=== PATIENT | male | born 1945 | race Caucasian/White ===

== ENCOUNTER → 2021-06-03 11:56 | Outpatient (CLI) | payer MEDICARE, BC, SELFPAY ==
[2021-06-03 13:31] LABS: Add Manual Diff / Slide Review NO; Basophils Absolute Auto 0 /uL (0-100); Basophils Percent Auto 0.5 % (0-2); Eosinophils Absolute Auto 100 /uL (0-450); Eosinophils Percent Auto 1.7 % (2-4); Hematocrit 42.1 % (41-53); Hemoglobin 14.3 g/dL (13.5-17.5); Lymphocytes Absolute Auto 1200 /uL (1100-4500); Mean Corpuscular HGB Conc 34.1 % (30-36); Mean Corpuscular Hemoglobin 31.5 PG (26-34); Mean Corpuscular Volume 92.4 fL (80-100); Monocytes Absolute Auto 600 /uL (0-900); Monocytes Percent Auto 11.1 % (3-14); Neutrophils Absolute Auto 3300 /uL (1500-7000); Neutrophils Percent Auto 63.7 % (50-75); Platelet Count 207 X10^3/uL (150-400); Red Blood Cell Count 4.55 X10^6/uL (4.5-5.9); Red Cell Distribution Width 13.5 % (11.6-14.8); White Blood Cell Count 5.2 X10^3/uL (4.5-11.0)
[2021-06-03 13:45] LABS: BUN Creatinine Ratio 35.2 (6-22); Blood Urea Nitrogen 25 mg/dL (9-20); Calcium 9.3 mg/dL (8.4-10.2); Carbon Dioxide 26 mmol/L (22-32); Chloride 106 mmol/L (98-107); Estimated Glomerular Filt Rate > 60.0 mL/min (>60); Glucose 92 mg/dL (80-110); HEMOLYSIS < 15 (0-50); Potassium 4.4 mmol/L (3.4-5.1); Sodium 138 mmol/L (137-145)
== END ==
PROVIDERS: Family Provider Internal Medicine; PCP Internal Medicine; Referring Provider Orthopaedic Surgery Orthopaedic Surgery of the Spine; Visit Provider Orthopaedic Surgery Orthopaedic Surgery of the Spine
DX: Z01.812 Encounter for preprocedural laboratory examination (principal)
CPT/HCPCS: 36415; 80048; 85025

== ENCOUNTER → 2021-06-04 11:30 | Outpatient (CLI) | payer MEDICARE, BC, SELFPAY ==
[2021-06-04 14:30] LABS: COVID19 -Nasal RAPID Negative (Negative)
== END ==
PROVIDERS: Family Provider Internal Medicine; PCP Internal Medicine; Visit Provider Nurse Practitioner
DX: Z20.822 Contact with and (suspected) exposure to COVID-19 (principal); Z01.812 Encounter for preprocedural laboratory examination
CPT/HCPCS: 87635

== ENCOUNTER 2021-06-06 09:12 | Inpatient (IN) | payer MEDICARE, BC, SELFPAY ==
[2021-05-29 09:56] VITALS: BMI 26.3
[2021-06-06] VITALS (17 sets, daily range): BP systolic 98–150; BP diastolic 45–86; PULSE 61–87; RESP 8–17; TEMP 36.2–36.7; O2SAT 91–98; BMI 26.6
[2021-06-06 11:00] LABS: Appearance Urine UA CLEAR; Bilirubin Urine UA NEGATIVE (NEGATIVE); Color Urine UA YELLOW; Glucose Urine UA NEGATIVE (Negative); Ketones Urine UA NEGATIVE (NEGATIVE); Leukocyte Esterase Urine UA NEGATIVE (NEGATIVE); Nitrite Urine UA NEGATIVE (Negative); Occult Blood Urine UA NEGATIVE (Negative); Protein Urine UA NEGATIVE (Negative); Urobilinogen Urine UA 0.2 E.U./dL (0.2)
[2021-06-06 11:13] LABS: Bacteria Urine Few (2-10); Culture Indicated Urine Cult Not Indicated; RBC Urine 0-1/HPF (0-5/HPF); WBC Urine 0-1/HPF (0-5/HPF)
[2021-06-06] MEDS: ACETAMINOPHEN 325 MG TABLET 975 MG PO (12:12)
[2021-06-06] MEDS: GABAPENTIN 300 MG CAPSULE PO (12:13)
--- NOTE | 2021-06-06 12:34 | PM.PREOP ---
Pre-operative Note COVID-19 COVID-19 status: Negative Result date/Date tested (Pos, Neg/Pending): 06/04/21 Interval Note History & Physical reviewed/Exam performed by Physician: Yes Changes to H&P: No
[2021-06-06] MEDS: LACTATED RINGERS 1,000 ML 42 ML IV (12:37)
[2021-06-06] MEDS: CEFAZOLIN 1 GM VIAL 2 GM IV ×2 (13:26→22:00)
--- NOTE | 2021-06-06 13:37 | SUR.OPER ---
Prone on spine table, head in foam head support, padded chest and pelvic supports, gel pad at knees, lower legs supported by pillows; nipples, genitalia and toes free of pressure, arms secured on foam padded arm boards at <90 degrees abduction. Tape over blanket at thigh secured to table.
[2021-06-06] MEDS: BUPIVACAINE LIPOSOME 266 MG/20 ML VIAL INJ (13:47)
[2021-06-06] MEDS: BUPIVACAINE 0.25% W/ EPI 30 ML VIAL INJ (13:47)
--- NOTE | 2021-06-06 15:08 | DI.RAD.S_ITS ---
PROCEDURE: XR LUMBAR SPINE 2-3V INDICATIONS: L3-4 TLIF TECHNIQUE: Low resolution fluoroscopic spot films of the anterior lateral lower lumbar obtained COMPARISON: None. FINDINGS: Low resolution intraoperative spot film shows L4-5 posterior jamel and screw instrumentation as well as an interbody cage graft in good position. IMPRESSION: Fluoroscopic guidance Approved by: Ivan Hamilton M.D. on 06/06/2021 at 14:41
--- NOTE | 2021-06-06 15:20 | PM.OP.1 ---
Operative Date/Time/Diagnoses Date of procedure: 06/06/21 Time of procedure: 13:20 Pre-op diagnosis: 1. L3-4 spinal stenosis 2. L3-4 spondylolisthesis 3. L3-4 spondylosis with radiculopathy Post-op diagnosis: same Procedure & Clinicians Procedure: 1. L3-4 Postero-lateral and posterior interbody fusion 2. L3-4 interbody cage placement. 3. L3-4 decompressive laminectomy with bilateral facetecomies 4. L3-4 Posterior non-segmental instrumentation 5. [place] of bone marrow from iliac crest 6. Utilization of microsurgical technique and operating microscope Same procedure as scheduled: Yes Indications: Patient has been having chronic back pain and worsening lumbar radiculopathy. Patient failed multiple conservative management with worsening pain weakness and numbness in her lower extremity. Patient has been having difficulty performing activity of daily living. After discussing risks benefits of treatment options, patient elected proceed with surgery. Surgeon: Dax Hassan Click Yes if Unassisted: No Anesthesia Type: General Operative Notes Closure Type: primary Specimen(s): none sent Prosthetic devices, grafts, tissues, transplants, or devices: Globus revolve screws, Rise cage Estimated Blood Loss (mL): 100 Blood products transfused: none Procedure in detail: Patient was seen in the preoperative area. Risks and benefits of the surgery was discussed with the patient. Informed consent was obtained from the patient and placed in the chart. Surgical site was marked. Patient was taken to the operative room. General anesthesia was administered. Prophylactic antibiotic was given to the patient less than 30 min before the incision was made. Patient was placed into a prone position on the [place] Antonio table. Patient's back was then prepped and draped in the sterile fashion. Time-out was performed at this time. Using AP and lateral C-arm imaging the interval between L3-4, L4-5 was identified and marked on patient's back. A 2 inch incision 2 in from midline was made on the right side first. The fascia was incised in line with skin incision. Globus MARS retractors was placed inside the incision and docked onto the L3 lamina. Using microsurgical technique and operating microscope, a L3 laminectomy and [] facetectomy was performed using a Kerrison rongeur. The disc space at L3-4 was identified. And a total diskectomy was performed at L3-4 level. The endplates were decorticated using a rasp and shaver. The total diskectomy and decortication was performed at L3-4 level in order to to accomplish a L3-4 fusion. The local bone from the laminectomy and facetectomy was saved for local bone grafting. After the total diskectomy and decortication was completed, Globus Trifecta bone graft material was combined with local bone that was harvested earlier. At this time, a separate skin is incision was made over the iliac crest. A Jamshidi needle was inserted into the iliac crest through a separate skin incision. 5 cc of bone marrow aspiration was obtained through the separate skin incision using a Jamshidi needle from the iliac crest. The bone marrow aspiration was combined with local bone and theTrifecta bone grafting material. The bone grafting material was placed into the L3-4 interbody space along with a expandable cage. The cage was expanded to its maximum height using the torque limiting screwdriver. At this time a mirror image incision was made on the left side. The fascia was incised in line with the skin incision. Globus MARS retractor was inserted and docked onto the L3-4 posterolateral gutter. Using the power drill, posterior-lateral decortication was performed at L3-4 level until bleeding cortical bone was identified. The remaining bone grafting material was placed into the L3-4 posterior lateral gutter he order to accomplish posterolateral fusion at the L3-4 level. Using the double C-arm technique, pedicle screws were placed into the L3-4 pedicles bilaterally. This was done by placing the Jamshidi needle into the pedicles, then placing the guidewires over the Jamshidi needle, and finally placing the cannulated screws over the guidewires bilaterally. After the pedicle screws were placed, 2 titanium rods was locked into the heads of the pedicle screws using locking caps and torque limiting screwdriver. After all the hardware was placed, and confirmed with AP and lateral C-arm imaging, the wound was then irrigated with sterile normal saline and packed with Ray-Krista gauze for 3 min to accomplish hemostasis. After the gauze was removed the deep fascia was closed with #1 Vicryl suture. The subcutaneous layer was closed with 2-0 Vicryl. The skin was closed with skin linda. Patient tolerated the procedure well. There were no complications. Complications: none Post-operative Condition: stable Disposition: PACU Plan for aftercare: Admit to inpatient hospital
[2021-06-06] MEDS: HYDROMORPHONE 2 MG INJ IV ×2 (15:40→15:45)
[2021-06-06] MEDS: OXYCODONE IR 5 MG TABLET PO ×4 (15:43→22:01)
[2021-06-06] MEDS: ONDANSETRON 4 MG/2 ML INJ IV (16:22)
--- NOTE | 2021-06-06 17:18 | SUR.PHASEI ---
PACU: CALLED REPORT TO Lio DORAN RN. ALL QUESTIONS ANSWERED TO SATISFACTION. BROUGHT PATIENT UP TO RM 207 IN STABLE CONDITION. MET ESPINOZA AT BEDSIDE FOR FACE TO FACE HANDOFF. SCD ON, BED LOCKED IN LOW POSITION, CALL LIGHT IN REACH.
[2021-06-06] MEDS: HYDROMORPHONE 0.5 MG INJ IV (17:39)
[2021-06-06] MEDS: hydrOXYzine pamoate 25 MG CAPSULE PO (17:39)
[2021-06-06] MEDS: SODIUM CHLORIDE 0.9% 1,000 ML 100 ML IV (17:39)
[2021-06-06] MEDS: DOCUSATE 100 MG CAPSULE PO (22:00)
[2021-06-06] MEDS: SENNOSIDES 8.6 MG TABLET 17.2 MG PO (22:00)
--- NOTE | 2021-06-06 23:28 | PC.NURSE ---
Admit/Evening Shift Note- Patient arrived to room via bed from surgery at 1705. Patient complained of paibn at 7/10. No complaints of N/V. Patient tolerated general diet dinner without issue. Admit questions done, medications reviewed, physical assessment done, and skin check completed. Patient oriented to room, bed and bed controls, lights, phone, menu, bathroom, and call larios/tv remote. Safety meausures in place. Patient agrees to call for assistance. call larios and phone within reach. will continue to monitor.
[2021-06-07 00:40] VITALS: BP 123/68; PULSE 68; RESP 16; TEMP 36.6; O2SAT 97
[2021-06-07] MEDS: ACETAMINOPHEN 325 MG TABLET 650 MG PO (03:30)
[2021-06-07 03:35] VITALS: BP 126/71; PULSE 68; RESP 16; TEMP 36.2; O2SAT 97
[2021-06-07] MEDS: CEFAZOLIN 1 GM VIAL 2 GM IV (05:33)
[2021-06-07 07:50] VITALS: BP 131/72; PULSE 65; RESP 16; TEMP 36.2; O2SAT 97
[2021-06-07 08:12] VITALS: O2SAT 95
[2021-06-07] MEDS: CHOLECALCIFEROL (VITAMIN D3) 400 UNIT TABLET PO (09:07)
[2021-06-07] MEDS: TAMSULOSIN 0.4 MG CAPSULE PO (09:07)
[2021-06-07] MEDS: DOCUSATE 100 MG CAPSULE PO (09:07)
[2021-06-07] MEDS: OXYCODONE IR 5 MG TABLET PO ×2 (09:09→13:31)
--- NOTE | 2021-06-07 09:09 | P.DS_ITS ---
History of Present Illness History of Present Illness Date Patient Seen: 06/07/21 Time Patient Seen: 09:09 Chief complaint: OPB Narrative: The patient is complaining of mild back pain this morning, which is well controlled with current pain management. He denies any fevers, chills, night sweats. He denies any numbness or tingling in his bilateral lower extremities. He has not worked with physical therapy yet. He does have a flight of stairs when he gets home. Overall, he is feeling well, and would like to go home today if physical therapy is successful. Discharge Providers Provider Discharge Date: 06/07/21 Primary care physician: Aimee Bullock MD Consults: 06/06/21 17:10 Consult to Occupational Therapy Evaluate & Treat Comment: Physician Instructions: Evaluate and treat Consult to Physical Therapy Evaluate & Treat Comment: Physician Instructions: Evaluate and Treat Discharge provider: Marlene Guevara PA-C Summary Hospital Course Discharge Diagnosis: 1. L3-4 spinal stenosis 2. L3-4 spondylolisthesis 3. L3-4 spondylosis with radiculopathy Hospital Course: Procedure: 1. L3-4 Postero-lateral and posterior interbody fusion 2. L3-4 interbody cage placement. 3. L3-4 decompressive laminectomy with bilateral facetecomies 4. L3-4 Posterior non-segmental instrumentation 5. [place] of bone marrow from iliac crest 6. Utilization of microsurgical technique and operating microscope Same procedure as scheduled: Yes Indications: Patient has been having chronic back pain and worsening lumbar radiculopathy. Patient failed multiple conservative management with worsening pain weakness and numbness in her lower extremity. Patient has been having difficulty performing activity of daily living. After discussing risks benefits of treatment options, patient elected proceed with surgery. Surgeon: Dax Hassan Click Yes if Unassisted: No Anesthesia Type: General Operative Notes Closure Type: primary Specimen(s): none sent Prosthetic devices, grafts, tissues, transplants, or devices: Globus revolve screws, Rise cage Estimated Blood Loss (mL): 100 Blood products transfused: none Status at Discharge Cognitive/behavioral status at discharge: oriented Functional status at discharge: uses cane/walker Overall status at discharge: patient is progressing back to baseline Exam Vital Signs (past 8 hours): - 06/07/21 03:35 06/07/21 08:12 Temperature 97.1 F L Pulse Rate 68 Respiratory Rate 16 Blood Pressure 126/71 Pulse Oximetry 97 95 Oxygen Delivery Method Nasal Cannula Oxygen Flow Rate 2 Narrative Exam Narrative: Pleasant 76-year-old male, lying comfortably in bed, no acute distress. His incision has mild scant drainage, bloody. Bilateral lower extremities with normal motor functions, sensation is also grossly intact to light touch bilaterally. Both legs are warm and dry. Bilateral calf calves are soft, nontender to palpation. SCDs are in place and functioning. He is currently on 2 L of oxygen. Objective Labs Labs: Laboratory Results - last 24 hr 06/06/21 10:57 Urine Color Yellow Urine Appearance Clear Urine pH 6.0 Ur Specific [place] 1.020 Urine Protein Negative Urine Glucose (UA) Negative Urine Ketones Negative Urine Occult Blood Negative Urine Nitrate Negative Urine Bilirubin Negative Urine Urobilinogen 0.2 Ur Leukocyte Esterase Negative Urine RBC 0-1/hpf Urine WBC 0-1/hpf Urine Bacteria Few (2-10) H Ur Culture Indicated? Cult not indicated PFSH Medical History Arthritis BCC (basal cell carcinoma) Borderline hypertension Enlarged prostate Heart murmur Mitral valve prolapse Rash and nonspecific skin eruption Rosacea SCC (squamous cell carcinoma) Sciatica Thoracic aortic aneurysm Surgical History History of carpal tunnel release Hx of laminectomy (04/2016) Social History household members: spouse Smoking Status: Never smoker alcohol intake: current Discharge Assessment & Plan Assessment and Plan Assessment: Patient is progressing as expected status post lumbar fusion. Plan of Treatment: Weightbearing as tolerated. Limit bending, twisting, lifting. The patient will need to work with physical therapy and be cleared in order to discharge today. He will also need to wean off of his oxygen. The plan is to discharge home today once cleared by PT. Discharge Plan Discharge Plan Patient Disposition: Home Discharge orders & Medications Discharge Orders: Discharge (Order); Ordered 06/07/21 Ordered By: Marlene Guevara Prescriptions: New acetaminophen 325 mg Tablet 500 mg PO Q6HR PRN (Reason: for pain, max 6 tabs/day) Qty: 90 RF: 0 oxycodone 5 mg Tablet 5 mg PO Q3-6H PRN (Reason: pain) Qty: 42 RF: 0 docusate sodium [DOK] 100 mg Capsule 100 mg PO BID PRN (Reason: constipation from narcotic pain meds) Qty: 60 RF: 0 tamsulosin [Flomax] 0.4 mg Capsule 0.4 mg PO DAILY PRN (Reason: postop urination) Qty: 5 RF: 0 acetaminophen [Tylenol Extra Strength] 500 mg tablet 500 mg PO Q4-6H MDD 6 tabs/day PRN (Reason: pain) Qty: 90 RF: 0 oxycodone 5 mg capsule See Rx Instructions .ROUTE .COMPLEX PRN (Reason: pain) Qty: 42 RF: 0 tamsulosin 0.4 mg capsule 0.4 mg PO DAILY Qty: 5 RF: 0 docusate sodium 100 mg tablet 100 mg PO BID PRN (Reason: constipation from narcotic pain meds) Qty: 60 RF: 0 acetaminophen [Tylenol Extra Strength] 500 mg tablet 500 mg PO Q4-6H MDD 6 tabs/day PRN (Reason: pain) Qty: 90 RF: 0 Continued tamsulosin 0.4 mg Capsule 0.4 mg PO DAILY RF: 0 naproxen sodium [Aleve] 220 mg Capsule 220 mg PO DAILY RF: 0 cholecalciferol (vitamin D3) [Vitamin D3] 10 mcg (400 unit) Capsule 10 mcg PO DAILY RF: 0 glucosamine sulfate 750 mg Tablet 750 mg PO DAILY RF: 0 Follow up/Referrals: Aimee Bullock MD [Primary Care Provider] - Dax Hassan MD [Physician] - (2 weeks for postop appt) Diet/Activity/Treatments Diet: Diet as Tolerated and Regular Activity: Weight-bearing as tolerated. Limit bending, lifting, twisting. Cold/Heat Therapy: Use ice as needed for pain. Skin/Wound/Dressing Care Report to your healthcare provider any signs of infection, such as:: chills, fever, night sweats, unusual drainage and unusual redness Dressing: Okay to shower after 2 days. Please change the dressing if wet, saturated, soiled. Visit Report/Discharge Packet Instructions: DI for Transforaminal Lumbar Interbody Fusion Stand Alone Forms: Surgery Discharge Discharge Data Primary Care Provider: Aimee Bullock Attending Provider: Dax Hassan
--- NOTE | 2021-06-07 09:30 | PT.IIE ---
Current Diagnoses Spinal stenosis, lumbar region with neurogenic claudication (06/06/21) Other specified postprocedural states (06/06/21) Surgery Performed Operation Date: 06/06/21 10:45 Actual Procedures p L3-4 TLIF - Dax Hassan MD Medical History (Last Reviewed 06/07/21 @ 09:13 by Marlene Guevara PA-C) Arthritis BCC (basal cell carcinoma) Borderline hypertension Enlarged prostate Heart murmur Mitral valve prolapse Rash and nonspecific skin eruption Rosacea SCC (squamous cell carcinoma) Sciatica Thoracic aortic aneurysm Physical Therapy Inpatient Evaluation/Re-Eval M1 PT/OT-IP Prior Functional Status Start: 06/07/21 10:40 Freq: NEEDED Status: Active Protocol: Document 06/07/21 09:30 AB (Rec: 06/07/21 10:54 AB [email or web address]) Medical Review Prior Functional Status Medical History Reviewed Yes Communication able to make needs known Mobility and Gait pt stated that he is independent with all mobilities and ambulation without AD; h/o falls : ~ 6 falls for the year and last fall was last month Social History Household Members spouse Living Arrangements House Number of Floors (Floors) Two Floors Number of Stairs To Enter/Railing? no steps to enter 13 steps to bedroom level: 1/2 has B rails and 1/2 has R rail +wall Home Environment Standard Height Toilet,Walk in Shower Home Equipment Front Wheel Walker,Four Wheel Walker M2 PT-IP Current Condition Start: 06/07/21 10:40 Freq: NEEDED Status: Active Protocol: Document 06/07/21 09:30 AB (Rec: 06/07/21 10:54 AB [email or web address]) Physical Therapy Current Condition Current Condition Evaluation Date 06/07/21 Treatment Diagnosis s/p L3-4 fusion/lami; difficulty in walking Onset Date 06/06/21 Precautions Lumbar Precautions Log Roll,No Twisting,Limit Bending,Lifting Restriction of 10 lbs,Gait Belt above Incisional Area M3 PT-IP Subjective Start: 06/07/21 10:40 Freq: NEEDED Status: Active Protocol: Document 06/07/21 09:30 AB (Rec: 06/07/21 10:54 AB [email or web address]) Subjective Physical Therapy Visit Type Type Initial Evaluation Visit Start Time 09:30 Visit Stop Time 10:20 Total Visit Minutes 50 Number of SAP PPM CONSULTANT Visits 0 Physical Therapy Visit Comments Patient Comments agreeable to do PT Therapy Pain Assessment Pain When Pain Assessed At Rest Pain Present Pain Present Pain Reported Location low back into left leg Intensity 5 Scale Used Numeric (0 - 10) Pain Management Techniques Apply Cold,Re-positioning, Timing of Activity with Medications M4 PT-IP Mobility and Gait Start: 06/07/21 10:40 Freq: NEEDED Status: Active Protocol: Document 06/07/21 09:30 AB (Rec: 06/07/21 10:54 AB [id number]) PT-Bed Mobility Assessment Rolling Type of Rolling Log Rolling Level of Assist Minimal Assistance Supine to Sit Supine to Sit Minimal Assistance PT-Transfer Assessment Sit to and From Stand Sit to and from Stand Moderate Assistance,Maximum Assistance,1 Person Assistance ,2 Person Assistance,Use of Upper Extremities Equipment Transfer Assistive Device Gait Belt,Front Wheeled Walker Orthotic/Prosthetic Devices or Brace: No Transfers Transfer Destination Chair Transfer Technique Stand Step Pivot Transfer Ability Level of Assist Moderate Assistance,Maximum Assistance,1 Person Assistance ,Use of Upper Extremities Comments Mobility Comments BP: 124/63 educated on back precautions and log roll bed mobility. completed supine to sit log roll min A and max cues. BP: 134/68. no c/o dizziness/nausea. attempted sit to stand from EOB x 2 attempts and unable providing max A x 1. NAC came in to assist and attempted 2 more time and unable. educated pt on techniques for sit to stand . L hand positioned on FWW to assist and R hand pushing from bed and completed max A x 1-2 and max cues. completed step transfer using FWW mod to max A and max cues. cued for L quads activation. pt stated that LLE feels weak. pt agreed to do ambulation. completed sit to stand from chair mod to max A and max cues. ambulated ~ 15 ft using FWW mod to max A and max cues . pt agreed to sit on chair. positioned on chair. call light and table place within reach. Gait Assessment Gait Gait Assistance Required: Moderate Assistance,Maximum Assistance,1 Person Assist Distance (Feet) 15 Able to Maintain Weight Bearing Status Yes During Gait Assistive Devices Assistive Device Gait Belt,Front Wheeled Walker Orthotic/Prosthetic Devices or Brace: No Gait Deviations General Gait Pattern Antalgic,Decreased Stride Length,Decreased Feet Clearance,Step-to Gait Factors Limiting Gait Function Factors Limiting Gait Function Decreased Activity Tolerance, Decreased Strength,Limited Range of Motion,Pain,Poor Balance,Poor Safety Awareness Comments Gait Comments pls refer to mobility section for details PT-Balance Assessment Sitting Balance and Reactions Static Sitting Balance Ability Good Dynamic Sitting Balance Ability Good Standing Balance and Reactions Static Standing Balance Ability Poor Dynamic Standing Balance Ability Poor Device Used FWW M5 PT-IP Objective Assessments Start: 06/07/21 10:40 Freq: NEEDED Status: Active Protocol: Document 06/07/21 09:30 AB (Rec: 06/07/21 10:54 AB [email or web address]) Orientation Orientation/Cognition Level of Alertness Alert Orientation Name,Place,Situation Language Function Ability No Deficits Noted Safety Awareness Decreased Safety Awareness Gross Range of Motion Lower Extremity ROM Assessment Within Functional Limits Strength Lower Extremity Strength Assessment Bilaterally Impaired Comments Strength Comments LLE: 3+/5 RLE: 4-/5 Sensation Assessment Sensation Gross Sensation WNL Muscle Tone Muscle Tone WNL Yes Other Assessments Other Other Assessments increase cervical lateral flexion to the R and upper thoracic levoscoliosis. M6 PT-IP Treatment Start: 06/07/21 10:40 Freq: NEEDED Status: Active Protocol: Document 06/07/21 09:30 AB (Rec: 06/07/21 10:54 AB [id number]) Physical Therapy Treatment Education Education Provided Precautions,Weight Bearing Status,Post-Op Packet,Safety M7 PT-IP Assessment and Plan Start: 06/07/21 10:40 Freq: NEEDED Status: Active Protocol: Document 06/07/21 09:30 AB (Rec: 06/07/21 10:54 AB [email or web address]) PT Summary Assessment and Plan Potential Rehabilitation Potential Fair Status of Condition at Evaluation Evolving Summary Impairments Pain,ROM,Strength,Balance, Coordination,Sensation,Tone, Cognition,Bed Mobility, Transfers,Gait,Activity Tolerance Assessment Summary pt requiring mod to max A x 2 with ambulation using FWW needing assist to stabilize LLE. pt stated that spouse will be coming in this afternoon and caregiver training will be initiated when appropriate. will continue to assess progress for safe d/c plan. Goals Bed Mobility Goal Independent Transfer Goal Independent,Front Wheeled Walker Gait Goal Independent,Front Wheel Walker Gait Distance 150 Other Goals up/down 7 steps R rail SBA; 6 steps B rail SBA Days to Meet Goals 5 Frequency of Treatment Frequency Of Treatment Twice a Day Treatment Plan Physical Therapy Treatment Plan Bed Mobility Training,Transfer Training,Gait Training, Therapeutic Exercise,Balance Retraining,Post Op Education, Discharge Planning,Hot or Cold Pack,Neuromuscular Re-ed, Coordination Retraining,Manual Therapy Other Recommendations and Next Treatment caregiver training, stair Focus training Precautions Lumbar Precautions Log Roll,No Twisting,Limit Bending,Lifting Restriction of 10 lbs,Gait Belt above Incisional Area Recommendations To Nursing Amount of Assist Needed 1 Person Assist Discharge Recommendations PT Discharge Recommendations Home with 10/05 Assist Available,Home Health,SNF Rehab,Home vs SNF Transportation Needs at Discharge Private Vehicle,Wheelchair/ Cabulance
--- NOTE | 2021-06-07 11:20 | OT.IP.EVAL ---
Current Diagnoses Spinal stenosis, lumbar region with neurogenic claudication (06/06/21) Other specified postprocedural states (06/06/21) Surgery Performed Operation Date: 06/06/21 10:45 Actual Procedures p L3-4 TLIF - Dax Hassan MD Past Medical History (Last Reviewed 06/07/21 @ 09:13 by Marlene Guevara PA-C) Arthritis BCC (basal cell carcinoma) Borderline hypertension Enlarged prostate Heart murmur History of carpal tunnel release Hx of laminectomy (04/2016) Mitral valve prolapse Rash and nonspecific skin eruption Rosacea SCC (squamous cell carcinoma) Sciatica Thoracic aortic aneurysm Surgical History (Last Reviewed 06/07/21 @ 09:13 by Marlene Guevara PA-C) History of carpal tunnel release Hx of laminectomy (04/2016) Occupational Therapy Inpatient Evaluation/Re-Eval M1 PT/OT-IP Prior Functional Status Start: 06/07/21 10:40 Freq: NEEDED Status: Active Protocol: Document 06/07/21 14:14 [facility] (Rec: 06/07/21 14:27 [facility] [id number]) Medical Review Prior Functional Status Medical History Reviewed Yes Communication able to make needs known Mobility and Gait pt stated that he is independent with all mobilities and ambulation without AD; h/o falls : ~ 6 falls for the year and last fall was last month Activities of Daily Living and IADL's Pt states has been independent for all his ADL and IADL needs. Social History Household Members spouse Living Arrangements House Number of Floors (Floors) Two Floors Number of Stairs To Enter/Railing? no steps to enter 13 steps to bedroom level: 1/2 has B rails and 1/2 has R rail +wall Per OT eval pt states has 24 step to get into his house. Home Environment Standard Height Toilet,Walk in Shower Home Equipment Front Wheel Walker,Four Wheel Walker,Gyroscopic Instrument Mechanic M2 OT-IP Current Condition Start: 06/07/21 14:14 Freq: Status: Active Protocol: Document 06/07/21 14:14 [facility] (Rec: 06/07/21 14:27 [facility] [id number]) Occupational Therapy Current Condition Current Condition Evaluation Date 06/07/21 Treatment Diagnosis S/p L3-4 fusion/lami, decreased mobility. Diagnosis Onset Date 06/06/21 Post Operative Precautions Lumbar Precautions Log Roll,No Twisting,Limit Bending,Lifting Restriction of 10 lbs,Gait Belt above Incisional Area M3 OT- IP Subjective and Pain Start: 06/07/21 14:14 Freq: Status: Active Protocol: Document 06/07/21 14:14 [facility] (Rec: 06/07/21 14:27 [facility] [id number]) OT- Subjective Occupational Therapy Visit Type Type Initial Evaluation Visit Start Time 10:47 Visit Stop Time 11:20 Total Visit Minutes 33 Occupational Therapy Visit Comments Patient Comments Pt agreed to get up for OT eval. Patient/Caregiver Goals TO go home. OT Pain Assessment Pain When Pain Assessed At Rest Pain Present Pain Present Pain Reported Location low back into left leg Intensity 5 Scale Used Numeric (0 - 10) M4 OT- IP ADL's Start: 06/07/21 14:14 Freq: Status: Active Protocol: Document 06/07/21 14:14 [facility] (Rec: 06/07/21 14:27 [facility] [id number]) OT ADL-Grooming General Evaluation Grooming Ability Standby Assistance OT ADL-Oral Care General Eval Oral Care Ability Standby Assistance Comments Oral Care Comments Educated to spit onto a cup to best follow his back precautions. Pt tends to lean on the counter for support while standing with FWW. OT ADL-Dressing General Eval Lower Body Dressing Ability Maximum Assistance Comments OT Dressing Comments Able to go over flowers salesperson and sock aid , pt states his to assist for his socks as needed. OT ADL-Toileting Comments OT Toileting Comments Pt able to stand with FWW while urinating and CGA for balance. OT ADL-Bathing Comments OT Bathing Comments NOt performed. M5 OT- IP IADL's Start: 06/07/21 14:14 Freq: Status: Active Protocol: Document 06/07/21 14:14 [facility] (Rec: 06/07/21 14:27 [facility] [id number]) OT-Instrumental Activities of Daily Living Home Safety Awareness Home Safety Comments Pt a little groggy and not able to recall his back precautions and would be best for his to assist for his needs at this time. M6 OT- IP Functional Cognition Start: 06/07/21 14:14 Freq: Status: Active Protocol: Document 06/07/21 14:14 [facility] (Rec: 06/07/21 14:27 [facility] [id number]) Cognitive Factors Limiting Selfcare Function Cognitive Ability Level of Alertness Alert Patient Orientation Name,Place,Situation Attention Span Ability Capable of Focused Attention, Capable of Sustained Attention Ability to Follow Commands Able to Follow One Step Commands Safety Awareness Underestimates Need for Assistance Cognitive Comments Cognitive Assessment Comments Pt needing vc for safety to come to stand, vc to push up with at least one hand to come to stand at this time. Pt not able to recall his back precautions at this time and would benefit from continued training. OT- Vision and Hearing OT- Hearing Assessment OT- Hearing Assessment WFL M7 OT- IP Mobility and Balance Start: 06/07/21 14:14 Freq: Status: Active Protocol: Document 06/07/21 14:14 [facility] (Rec: 06/07/21 14:27 [facility] [id number]) OT-Transfer Assessment Sit to and From Stand Sit to and from Stand Minimal Assistance Transfers Transfer Ability Minimal Assistance,Moderate Assistance,1 Person Assistance Technique Transfer Destination Chair Transfer Technique Stand Step Pivot Devices Transfer Assistive Devices Gait Belt,Front Wheeled Walker Comments Mobility Comments BRIANNA to come to stand to FWW. Pt has difficulty with transition from sit to stand and vc to straighten his legs. OT- Gait Assessment Comments Gait Ability Comments BRIANNA with FWW to the sink to and from recliner, as pt tires needing more assist and assist to guide the walker and assist for his balance. OT- Balance Assessment Sitting Balance and Reactions Static Sitting Balance Ability Good Dynamic Sitting Balance Ability Fair Standing Balance and Reactions Static Standing Balance Ability Poor Comments Other Balance Tests/Deviations/Treatment Pt tends to lean to the left : while seated. M9 OT- IP Assessment and Plan Start: 06/07/21 14:14 Freq: Status: Active Protocol: Document 06/07/21 14:14 [facility] (Rec: 06/07/21 14:27 [facility] [id number]) OT Summary Assessment and Plan Potential Rehabilitation Potential Good Analytic Complexity at Evaluation Low Summary OT Impairments Pain,Balance,Functional Cognition,Functional Mobility, Grooming,Dressing,Toileting, Bathing,Toilet Transfers, Shower Transfers,Activity Tolerance Progress Towards Goals Slow Progress due to Pain,Slow Progress due to Activity Tolerance Assessment Summary Pt low complexity and main barriers are steps, pain, and decreased balance per PT eval pt has has multiple falls in the past year. Therefore pending progress and caregiver training either home with 24/ assist available versus possible short skilled rehab. Goals Grooming Goal Independent Dressing Goal Independent Toileting Goal Independent Bathing Goal Independent Toilet Transfer Goal Independent Shower Transfer Goal Independent Patient/Caregiver Education Goal Demonstrate Post-Op Precautions,Caregiver Independent Assisting Patient Days to Meet Goals 10 Frequency of Treatment Frequency Of Treatment Once a Day Treatment Plan OT Treatment Plan ADL Training,Functional Cognition Training,Functional Mobility,Patient/Family Education,Discharge Planning Other Treatment Recommendations and Next shower Treatment Focus Discharge Recommendations OT Discharge Recommendations Home with / Assist Available,Home Health,SNF Rehab,Home vs SNF Home Equipment Needs shower chair Transportation Needs at Discharge Private Vehicle
[2021-06-07 12:00] VITALS: BP 122/68; PULSE 69; RESP 16; TEMP 35.9; O2SAT 95
--- NOTE | 2021-06-07 12:22 | CM.IDA ---
Initial DCP Assessment Note Pt is a 76 yo male, resident of [place],now POD#[address] spinal surgery by Dr Hassan PCP: Aimee Bullock Payer: [facility] Reviewed chart, met w/patient this morning to introduce role. PT recommending home w/ 10/05 assist vs SNF at this time, patient requiring much assist for movement. Patient says his will be here this afternoon, patient has numerous stairs to climb in order to get into his home. Patient plans to return home w/spouse to assist. Spoke w/ Victoria OT, who expects patient to be able to return home w/spouse, unsure that will be today No needs expected from DC planning team, will remain available in case this changes before DC PAYAL León Discharge Planning/Care Management CM Discharge Assessment Start: 06/07/21 12:17 Freq: Status: Active Protocol: Document 06/07/21 12:17 [facility] (Rec: 06/07/21 12:22 [facility] [id number]) Discharge Planning Assessment Assigned Telephone Service Representative PAYAL Lou DPOA/Assigned Designee Name Adalgisa Louis, spouse Contact Information [phone] Advance Directives? No History Provided By Patient Has Patient been admitted in last 30 No days? Prior Living Arrangements House Household Members spouse Type of transporation used prior to Drives own vehicle admit Independent with ADL's Yes Is patient alert and oriented? Yes Barriers to Discharge Yes Comment Home vs SNF as of PT eval this morning, patient moving slowly but does plan on returning home upon DC Discharge Plan Home Transportation Arrangement Family Referrals Initiated None needed Additional Comment At this time Review Status In Process
[2021-06-07] MEDS: hydrOXYzine pamoate 25 MG CAPSULE PO (13:32)
--- NOTE | 2021-06-07 13:42 | PC.NURSE ---
Pt sitting up in chair talking with his Spouse. Discussed d/c instructions-follow back precautions-limit bending, lifting, and twisting and logroll in/out of bed. Move slowly and carefully and have a urinal standing by so you don't have to st in case the urge comes on suddenly. Drink plenty of fluids to prevent constipation or dehydration, consider a stool softener or Miralax if constipation occurs. NO driving while on narcotics. Try to decrease the need for frequent narcotics by taking acetaminophen 650 TID - and remember not to exceed 3000mg of acetaminophen in a 24 period. Recommended Pt consider a shower chair or a grab bar if they feel that would help. Discussed back dressing. Will replace dressing with water resistant dressing and provide a spare dsg in case dsg rolls up or comes off. No ointments or lotions on dsg. No further questions.
--- NOTE | 2021-06-07 14:20 | PT.IPTN ---
Current Diagnoses Spinal stenosis, lumbar region with neurogenic claudication (06/06/21) Other specified postprocedural states (06/06/21) Surgery Performed Operation Date: 06/06/21 10:45 Actual Procedures p L3-4 TLIF - Dax Hassan MD Physical Therapy Treatment Note M2 PT-IP Current Condition Start: 06/07/21 10:40 Freq: NEEDED Status: Discharge Protocol: Document 06/07/21 09:30 [facility] (Rec: 06/07/21 10:54 [facility] [id number]) Physical Therapy Current Condition Current Condition Evaluation Date 06/07/21 Treatment Diagnosis s/p L3-4 fusion/lami; difficulty in walking Onset Date 06/06/21 Precautions Lumbar Precautions Log Roll,No Twisting,Limit Bending,Lifting Restriction of 10 lbs,Gait Belt above Incisional Area M3 PT-IP Subjective Start: 06/07/21 10:40 Freq: NEEDED Status: Discharge Protocol: Document 06/07/21 13:56 [facility] (Rec: 06/07/21 15:27 [facility] [id number]) Subjective Physical Therapy Visit Type Type Treatment Note Visit Start Time 13:56 Visit Stop Time 14:20 Total Visit Minutes 24 Notes present for CG training Number of [employer] Visits 1 Physical Therapy Visit Comments Patient Comments agreeable to do PT, I want to go home Therapy Pain Assessment Pain When Pain Assessed At Rest Pain Present Pain Present Pain Reported Location low back into left leg Intensity 4 Scale Used 5/10 after tx Pain Management Techniques Apply Cold,Re-positioning, Timing of Activity with Medications M4 PT-IP Mobility and Gait Start: 06/07/21 10:40 Freq: NEEDED Status: Discharge Protocol: Document 06/07/21 13:56 [facility] (Rec: 06/07/21 15:27 [facility] [id number]) PT-Bed Mobility Assessment Rolling Type of Rolling Log Rolling Level of Assist Standby Assistance,1 Person Assistance Supine to Sit Supine to Sit Standby Assistance,1 Person Assistance Sit to Supine Sit to Supine Contact Guard Assistance, Minimal Assistance,1 Person Assistance Scooting Scooting to Edge of Bed Standby Assistance PT-Transfer Assessment Sit to and From Stand Sit to and from Stand Standby Assistance,Contact Guard Assistance,1 Person Assistance,Use of Upper Extremities Equipment Transfer Assistive Device Gait Belt,Front Wheeled Walker Orthotic/Prosthetic Devices or Brace: No Transfers Transfer Destination Chair Transfer Technique Stand Step Pivot Transfer Ability Level of Assist Contact Guard Assistance,1 Person Assistance Comments Mobility Comments Pt in chair standing SBA, pt transferred to EOB w/FWW/SBA and sat on bed with decreased control. Pt given cues and pt requested to stand and try sitting again. Pt stood SBA then sat with greater control and reaching back with hands to bed. Pt then given cues for reverse LR, pt performed reverse LR to supine SBA. Pt performed LR out of bed then from sidelying to sit SBA. Pt rested then pt's Adalgisa assisted pt to supine then back to seated position providing pt Min A for getting legs onto bed and guilding shoulders. Pt's donned gait belt after demontration and assisted pt CGA to standing. Pt ambulated in rocha ~140ft w/FWW/CGA provided by with cues to activate quads in LLE. Pt climbed three steps up/down with [employer] CGA for demonstration then pt's assisted pt with up/down three steps CGA. Pt then ambulated ~140ft back to room. Pt requested to use BR then returned to chair sitting SBA. Pt left in chair with present. RN informed of pt's progress. Gait Assessment Gait Gait Assistance Required: Contact Guard Assist,1 Person Assist Distance (Feet) 280 Able to Maintain Weight Bearing Status Yes During Gait Assistive Devices Assistive Device Gait Belt,Front Wheeled Walker Orthotic/Prosthetic Devices or Brace: No Gait Deviations General Gait Pattern Antalgic,Decreased Stride Length,Decreased Feet Clearance Factors Limiting Gait Function Factors Limiting Gait Function Decreased Activity Tolerance, Decreased Strength,Limited Range of Motion,Pain,Poor Balance,Poor Safety Awareness Comments Gait Comments pls refer to mobility section for details Stair Climbing Assessment Evaluation Level of Assist On Stairs Contact Guard Assistance Devices Stair Climbing Assistive Devices Left Railing,Right Railing Technique/Endurance Stair Climbing Direction Ascend and Descend Stair Climbing Technique Step to Step Number of Steps Climbed 3 Stair Climbing Set # Repetitions (reps) 2 M5 PT-IP Objective Assessments Start: 06/07/21 10:40 Freq: NEEDED Status: Discharge Protocol: Document 06/07/21 09:30 [facility] (Rec: 06/07/21 10:54 [facility] [id number]) Orientation Orientation/Cognition Level of Alertness Alert Orientation Name,Place,Situation Language Function Ability No Deficits Noted Safety Awareness Decreased Safety Awareness Gross Range of Motion Lower Extremity ROM Assessment Within Functional Limits Strength Lower Extremity Strength Assessment Bilaterally Impaired Comments Strength Comments LLE: 3+/5 RLE: 4-/5 Sensation Assessment Sensation Gross Sensation WNL Muscle Tone Muscle Tone WNL Yes Other Assessments Other Other Assessments increase cervical lateral flexion to the R and upper thoracic levoscoliosis. M6 PT-IP Treatment Start: 06/07/21 10:40 Freq: NEEDED Status: Discharge Protocol: Document 06/07/21 09:30 [facility] (Rec: 06/07/21 10:54 AB [id number]) Physical Therapy Treatment Education Education Provided Precautions,Weight Bearing Status,Post-Op Packet,Safety M7 PT-IP Assessment and Plan Start: 06/07/21 10:40 Freq: NEEDED Status: Discharge Protocol: Document 06/07/21 13:56 [facility] (Rec: 06/07/21 15:27 [facility] [id number]) PT Summary Assessment and Plan Potential Rehabilitation Potential Fair Status of Condition at Evaluation Evolving Summary Impairments Pain,ROM,Strength,Balance, Coordination,Sensation,Tone, Cognition,Bed Mobility, Transfers,Gait,Activity Tolerance Progress Towards Goals Progressing Toward Goals Assessment Summary Pt with good pain control with c/o spasms in low back area during tx. Pt able to assist pt with bed mobility CGA-Min A, sit-stand CGA, gait CGA and stairs CGA. Pt able to ambulate ~280ft w/FWW/CGA and climb up/down three steps x2. Pt seems safe to d/c home with to assist when medically stable. Goals Bed Mobility Goal Independent Transfer Goal Independent,Front Wheeled Walker Gait Goal Independent,Front Wheel Walker Gait Distance 150 Other Goals up/down 7 steps R rail SBA; 6 steps B rail SBA Days to Meet Goals 5 Frequency of Treatment Frequency Of Treatment Twice a Day Treatment Plan Physical Therapy Treatment Plan Bed Mobility Training,Transfer Training,Gait Training, Therapeutic Exercise,Balance Retraining,Post Op Education, Discharge Planning,Hot or Cold Pack,Neuromuscular Re-ed, Coordination Retraining,Manual Therapy Precautions Lumbar Precautions Log Roll,No Twisting,Limit Bending,Lifting Restriction of 10 lbs,Gait Belt above Incisional Area Recommendations To Nursing Amount of Assist Needed 1 Person Assist Discharge Recommendations PT Discharge Recommendations Home with / Assist Available,Home Health Transportation Needs at Discharge Private Vehicle
--- NOTE | 2021-06-07 15:00 | PC.NURSE ---
Pt is dressed and ready for discharge home with Spouse. IV has been removed. Went over d/c instructions with Pt and Spouse-discussed d/c meds, time of last dose, reviewed stroke education, recommendations to drink plenty of fluids to prevent constipation or dehdyration. Most of the discharge information was already covered and documented. Pt will call when he is dressed and ready to be taken out via w/c by LEATHER COLORER to pov with Spouse and all belongings.
== END 2021-06-07 15:26 | disposition home or self-care (01) | DRG 455 ==
LOC: OR 09:14 → AC 09:15
PROVIDERS: Admitting Provider Orthopaedic Surgery Orthopaedic Surgery of the Spine; Family Provider Internal Medicine; PCP Internal Medicine; Referring Provider Orthopaedic Surgery Orthopaedic Surgery of the Spine; Visit Provider Orthopaedic Surgery Orthopaedic Surgery of the Spine
PROC: 0SG00AJ Fusion of Lumbar Vertebral Joint with Interbody Fusion Device, Posterior Approach, Anterior Column, Open Approach (ICD-10-PCS; principal; 2021-06-06 10:45)
DX: M48.062 Spinal stenosis, lumbar region with neurogenic claudication (principal); M43.16 Spondylolisthesis, lumbar region; M54.16 Radiculopathy, lumbar region; I34.1 Nonrheumatic mitral (valve) prolapse; I71.2 Thoracic aortic aneurysm, without rupture; N40.0 Benign prostatic hyperplasia without lower urinary tract symptoms; Z98.890 Other specified postprocedural states; Z20.822 Contact with and (suspected) exposure to COVID-19
CPT/HCPCS: 36415; 72100; 76000; 80048; 81001; 85025; 87635; 97116; 97162; 97165; 97530; 97535; C1776; C9803; C9290; J0330; J0690; J1100; J1170; J2405; J2704; J3010

== ENCOUNTER → 2021-07-29 11:43 | Outpatient (CLI) | payer MEDICARE, BC, SELFPAY ==
[2021-06-06 20:24] VITALS: BMI 26.6
--- NOTE | 2021-07-29 | DI.CT.S_ITS ---
PROCEDURE: CT LUMBAR SPINE WO CON INDICATIONS: ACUTE PAIN POST SURGERY TECHNIQUE: Noncontrast 3 mm thick sections acquired from the T12 level to the sacrum. Sagittal and coronal reformats were constructed. For radiation dose reduction, the following was used: automated exposure control. COMPARISON: [facility] Outside Film, MR, MR LUMBAR SPINE WITH/WITHOUT CONTRAST, 03/25/2021, 8:52. [facility], CR, XR LUMBAR SPINE 2-3V, 06/06/2021, 13:34. FINDINGS: There are postsurgical changes of L3-L4 posterior fixation by means of bilateral pedicle screws and posterior stabilizing rods along with interbody device. There may have been some morselized bone graft material placed amongst the posterior elements as well. No osseous fusion is identified across the intervertebral disc space or posterior elements. There is no evidence of hardware fracture. Position of the hardware is similar to that seen on 06/06/2021 intraoperative fluoroscopic images. There is no abnormal lucency surrounding the hardware to indicate loosening. No t[place] bone fracture identified. . Normal lumbar vertebral body height and alignment other than degenerative straightening of the usual lumbar lordosis. No suspicious lytic or blastic osseous lesion. Hemangioma in the L2 vertebral body again noted. Regional soft tissues demonstrate no acute abnormality. T12-L1: No spinal canal or neural foraminal stenosis. No significant degenerative changes. L1-L2: Disc height loss with vacuum disc phenomenon and degenerative endplate changes. Diffuse disc bulge and a superimposed broad-based posterior disc protrusion flatten and indent the ventral thecal sac, particularly in the right subarticular zone. There is mild buckling of the ligamentum flavum and facet hypertrophy which further contribute to overall mild-moderate spinal canal stenosis. These factors combine to produce mild bilateral neural foraminal narrowing. L2-L3: Complete loss of intervertebral disc space with [id number] endplate contact and vacuum disc phenomenon. Diffuse disc bulge and posterior osteophytic ridging of the endplates combines to flatten and indent the ventral thecal sac with probable displacement of the traversing L3 nerve roots. These factors combine with facet hypertrophy to produce mild bilateral neural foraminal stenosis. L3-L4: The spinal canal is decompressed by left hemilaminectomy and medial facetectomy. There is no visualized residual disc material or posterior osteophytic ridging exerting mass effect upon the ventral thecal sac. Residual components of disc material contribute to mild-moderate neural foraminal narrowing bilaterally in conjunction with facet hypertrophy. L4-L5: Severe spinal canal stenosis as seen on the comparison MRI due to a combination of diffuse disc bulge with a superimposed broad-based posterior disc protrusion in conjunction with buckling of the ligamentum flavum and facet hypertrophy. These factors combine to produce moderate to severe bilateral neural foraminal stenosis. L5-S1: Diffuse disc bulge and a superimposed broad-based posterior disc protrusion with displacement of the descending S1 nerve roots in both subarticular zones. Foraminal components of the disc bulge and facet hypertrophy combine with neural foraminal height loss to produce moderate bilateral neural foraminal stenosis. These findings are not significantly changed from the comparison MRI. IMPRESSION: Postsurgical changes of L3-L4 posterior fixation and interbody fusion with left hemilaminotomy and medial facetectomy. No evidence of acute complicating hardware feature. Multilevel multifactorial degenerative changes are overall not significantly changed when compared with 03/25/2021 MRI, again worst at L4-L5 where there is severe spinal canal stenosis and moderate-severe neural foraminal stenosis. Dictated by: Pablo Louis M.D. on 07/29/2021 at 13:04 Approved by: Pablo Louis M.D. on 07/29/2021 at 13:13
== END ==
PROVIDERS: Family Provider Internal Medicine; PCP Internal Medicine; Referring Provider Orthopaedic Surgery Orthopaedic Surgery of the Spine; Visit Provider Orthopaedic Surgery Orthopaedic Surgery of the Spine
DX: M48.061 Spinal stenosis, lumbar region without neurogenic claudication (principal); G89.18 Other acute postprocedural pain; M48.07 Spinal stenosis, lumbosacral region; M47.816 Spondylosis without myelopathy or radiculopathy, lumbar region; M47.817 Spondylosis without myelopathy or radiculopathy, lumbosacral region; Z98.1 Arthrodesis status
CPT/HCPCS: 72131

== ENCOUNTER → 2021-08-12 15:11 | Outpatient (CLI) | payer MEDICARE, BC, SELFPAY ==
[2021-06-06 20:24] VITALS: BMI 26.6
--- NOTE | 2021-08-12 | DI.MRI.S_ITS ---
PROCEDURE: MR CERVICAL SPINE WO CON INDICATIONS: radiculopathy TECHNIQUE: Noncontrast sagittal T1 spin echo and T2 fast spin echo, sagittal STIR, foraminal oblique sagittal T2 fast spin echo, and axial gradient echo or T2 fast spin echo through the cervical spine. COMPARISON: None. FINDINGS: Normal configuration of the craniocervical junction. Degenerative retrolisthesis of C3 on C4 measuring approximately 2 millimeters. Otherwise normal alignment. Vertebral body heights maintained. Discogenic marrow edema at the opposing C3-C4 endplates. No significant marrow edema elsewhere. No suspicious focal marrow signal abnormality. Increased T2 signal of the cord at the C3-C4 level secondary to severe spinal canal stenosis, representing compressive myelopathy or edema. Otherwise normal morphology and signal intensity of the cervical cord. There is no syrinx. Prevertebral and paraspinous soft tissues are grossly unremarkable in the absence of IV contrast. C2-C3: Mild spinal canal stenosis. Moderate bilateral neural foraminal narrowing due to facet and uncovertebral hypertrophy. C3-C4: Severe spinal canal stenosis and severe bilateral neural foraminal narrowing. Spinal canal stenosis is due primarily to posterior disc osteophyte complex along with buckling of the ligamentum flavum. There is a very prominent central and right paracentral component of the disc osteophyte complex which effaces most of the spinal canal. The cord is narrowed to a maximum AP dimension of 4 millimeters. There is associated increased T2 signal of the cord. C4-C5: Mild spinal canal stenosis. Moderate bilateral neural foraminal narrowing due to facet and uncovertebral hypertrophy. C5-C6: No spinal canal or neural foraminal stenosis. C6-C7: Mild neural foraminal narrowing on the left. No spinal canal or neural foraminal stenosis on the right. C7-T1: No spinal canal or neural foraminal stenosis. IMPRESSION: Severe spinal canal stenosis at C3-C4 along with severe bilateral neural foraminal narrowing. Dictated by: Pablo Louis M.D. on 08/12/2021 at 16:35 Approved by: Pablo Louis M.D. on 08/12/2021 at 16:41
[2021-08-12 17:01] LABS: Add Manual Diff / Slide Review NO; Basophils Absolute Auto 0 /uL (0-100); Basophils Percent Auto 0.3 % (0-2); Eosinophils Absolute Auto 100 /uL (0-450); Eosinophils Percent Auto 1.3 % (2-4); Hematocrit 37.6 % (41-53); Hemoglobin 12.7 g/dL (13.5-17.5); Lymphocytes Absolute Auto 800 /uL (1100-4500); Lymphocytes Percent Auto 9.7 % (25-40); Mean Corpuscular HGB Conc 33.8 % (30-36); Mean Corpuscular Volume 88.9 fL (80-100); Monocytes Absolute Auto 1100 /uL (0-900); Monocytes Percent Auto 13.7 % (3-14); Neutrophils Absolute Auto 5800 /uL (1500-7000); Platelet Count 307 X10^3/uL (150-400); Red Blood Cell Count 4.23 X10^6/uL (4.5-5.9); Red Cell Distribution Width 13.3 % (11.6-14.8); White Blood Cell Count 7.8 X10^3/uL (4.5-11.0)
[2021-08-12 18:04] LABS: Erythrocyte Sedimentation Rate 31 MM/HR (0-15)
== END ==
PROVIDERS: Orthopaedic Surgery Orthopaedic Surgery of the Spine; Family Provider Internal Medicine; PCP Internal Medicine; Referring Provider Internal Medicine; Visit Provider Internal Medicine
DX: M54.12 Radiculopathy, cervical region (principal); M54.2 Cervicalgia; M48.02 Spinal stenosis, cervical region; R50.9 Fever, unspecified
CPT/HCPCS: 36415; 72141; 85025; 85651; 86140

== ENCOUNTER 2021-11-25 20:23 | Emergency (ER) | payer MEDICARE, BC, SELFPAY ==
[2021-06-06 20:24] VITALS: BMI 26.6
[2021-11-25] VITALS (12 sets, daily range): BP systolic 116–141; BP diastolic 58–86; PULSE 93–105; RESP 16–21; TEMP 36.9–38; O2SAT 93–96; BMI 24.2
--- NOTE | 2021-11-25 21:27 | DI.CT.S_ITS ---
PROCEDURE: CT CERVICAL SPINE WO CON INDICATIONS: fall, head injury TECHNIQUE: Noncontrast 3 mm thick sections acquired from the skull base to the T4 level. Sagittal and coronal reformats were then constructed. For radiation dose reduction, the following was used: automated exposure control, adjustment of mA and/or kV according to patient size. COMPARISON: [facility], CT, CT HEAD/BRAIN WO CON, 11/25/2021, 21:31. FINDINGS: Image quality: Excellent. Bones: Multilevel degenerative changes with disc disease C3-4, C4-5, C5-6, and C6-7. Facet arthrosis is seen multiple levels. There is leftward curvature of cervical spine. Soft tissues: Prevertebral soft tissues are normal in thickness. No paravertebral hematomas. No apical pneumothoraces. IMPRESSION: 1. No acute abnormality of the cervical spine. 2. Multilevel degenerative changes and degenerative disc disease. Dictated by: Jan Orr M.D. on 11/25/2021 at 21:56 Approved by: Jan Orr M.D. on 11/25/2021 at 21:58
--- NOTE | 2021-11-25 21:27 | DI.CT.S_ITS ---
PROCEDURE: CT HEAD/BRAIN WO CON INDICATIONS: fall, head injury TECHNIQUE: Noncontrast 4.5 mm thick angled axial sections acquired from the foramen magnum to the vertex, with coronal and sagittal reformats. For radiation dose reduction, the following was used: automated exposure control, adjustment of mA and/or kV according to patient size. COMPARISON: None. FINDINGS: Image quality: Excellent. CSF spaces: Basal cisterns are patent. No extra-axial fluid collections. Ventricles are normal in size and shape. Brain: No midline shift. No intracranial masses or hemorrhage. Campbell-white matter interface is normal. Skull and face: Calvarium and visualized facial bones are intact, without suspicious lesions. Sinuses: Visualized sinuses and mastoids are clear. IMPRESSION: No acute intracranial abnormality Dictated by: Jan Orr M.D. on 11/25/2021 at 21:54 Approved by: Jan Orr M.D. on 11/25/2021 at 21:56
--- NOTE | 2021-11-25 21:27 | DI.RAD.S_ITS ---
PROCEDURE: XR CHEST 1V INDICATIONS: fever, weakness TECHNIQUE: One view of the chest was acquired. COMPARISON: None. FINDINGS: Surgical changes and devices: None. Lungs and pleura: Bilateral perihilar airspace opacities consistent with pulmonary edema from CHF or a diffuse infectious process. There is blunting of the left costophrenic angle. Mediastinum: Heart size is enlarged. Bones and chest wall: No suspicious bony lesions. Overlying soft tissues appear unremarkable. IMPRESSION: Cardiomegaly and pulmonary edema consistent with mild CHF versus a diffuse infectious process. Dictated by: Jan Orr M.D. on 11/25/2021 at 21:40 Approved by: Jan Orr M.D. on 11/25/2021 at 21:42
[2021-11-25 21:44] LABS: Alanine Aminotransferase 11 IU/L (<50); Albumin 3.2 g/dL (3.5-5.0); Albumin Globulin Ratio 0.9 (1.0-2.8); Alkaline Phosphatase 89 U/L (38-126); Aspartate Aminotransferase 20 IU/L (17-59); BUN Creatinine Ratio 41.7 (6-22); Bilirubin Total 0.8 mg/dL (0.2-1.3); Blood Urea Nitrogen 25 mg/dL (9-20); Calcium 8.9 mg/dL (8.4-10.2); Carbon Dioxide 29 mmol/L (22-32); Chloride 106 mmol/L (98-107); Estimated Glomerular Filt Rate > 60.0 mL/min (>60); Globulin 3.4 g/dL (1.7-4.1); Glucose 120 mg/dL (80-110); HEMOLYSIS < 15 (0-50); Lactate (Lactic Acid) 0.9 mmol/L (0.7-2.1); Potassium 4.2 mmol/L (3.4-5.1); Sodium 138 mmol/L (137-145); Total Protein 6.6 g/dL (6.3-8.2)
[2021-11-25 21:51] LABS: COVID19 -Nasal RAPID Negative (Negative)
[2021-11-25] MEDS: HYDROMORPHONE 1 MG INJ 0.5 MG IV (21:53)
[2021-11-25 21:54] LABS: Add Manual Diff / Slide Review NO; Basophils Absolute Auto 0 /uL (0-100); Basophils Percent Auto 0.1 % (0-2); Eosinophils Absolute Auto 100 /uL (0-450); Eosinophils Percent Auto 0.5 % (2-4); Hematocrit 30.4 % (41-53); Lymphocytes Absolute Auto 800 /uL (1100-4500); Lymphocytes Percent Auto 7.7 % (25-40); Mean Corpuscular HGB Conc 32.8 % (30-36); Mean Corpuscular Hemoglobin 26.6 PG (26-34); Mean Corpuscular Volume 80.9 fL (80-100); Monocytes Absolute Auto 700 /uL (0-900); Monocytes Percent Auto 7.1 % (3-14); Neutrophils Absolute Auto 8600 /uL (1500-7000); Neutrophils Percent Auto 84.6 % (50-75); Platelet Count 323 X10^3/uL (150-400); Red Blood Cell Count 3.75 X10^6/uL (4.5-5.9); Red Cell Distribution Width 16.1 % (11.6-14.8); White Blood Cell Count 10.1 X10^3/uL (4.5-11.0)
[2021-11-25] MEDS: SODIUM CHLORIDE 0.9% 1,000 ML 150 ML IV (21:56)
[2021-11-25 22:00] LABS: Procalcitonin 0.31 ng/mL (<0.5)
--- NOTE | 2021-11-25 22:42 | PC.NURSE ---
pt reports decrease in pain post Dilaudid injection
--- NOTE | 2021-11-25 23:09 | ED.BACK ---
HPI - Back Pain/Injury General Chief Complaint: Back Pain/Injury Stated Complaint: GLF Time Seen by Provider: 11/25/21 21:00 Source: EMS History of Present Illness HPI Narrative: 76-year-old gentleman with a history of chronic back pain post L3-4 fusion with some continued pain and mobility issues since that time with standing at the bathroom counter became unsteady and fell backward landing flat on his head, did not brace at all for the fall. Does not describe chest pain, palpitations, dyspnea prior to the event does not describe any loss of consciousness. Having pain in the back of his head with some minor bleeding and his back pain is somewhat exacerbated with falls. He is moving all extremities. Brought in by medics for further evaluation. He notes that aside from pain and mobility issues post surgery he has not recently had fevers, cough, chills, constipation, vomiting, diarrhea. He has not had any palpitations or chest pain. He has had no changes to his chronic lower extremity edema but has been getting weaker because of mobility issues secondary to pain and spinal surgery recovery process. Related Data Home Medications Medication Instructions Recorded Confirmed naproxen sodium 220 mg capsule 220 mg PO DAILY 05/29/21 06/06/21 (Aleve) tamsulosin 0.4 mg capsule 0.4 mg PO DAILY 05/29/21 06/06/21 cholecalciferol (vitamin D3) 10 10 mcg PO DAILY 06/06/21 06/06/21 mcg (400 unit) capsule (Vitamin D3) glucosamine sulfate 750 mg tablet 750 mg PO DAILY 06/06/21 06/06/21 Previous Rx's Medication Instructions Recorded acetaminophen 325 mg tablet 500 mg PO Q6HR PRN #90 tab 06/07/21 acetaminophen 500 mg tablet 500 mg PO Q4-6H PRN #90 tab MDD 6 06/07/21 (Tylenol Extra Strength) tabs/day acetaminophen 500 mg tablet 500 mg PO Q4-6H PRN #90 tab MDD 6 06/07/21 (Tylenol Extra Strength) tabs/day docusate sodium 100 mg capsule 100 mg PO BID PRN #60 cap 06/07/21 (DOK) docusate sodium 100 mg tablet 100 mg PO BID PRN #60 tab 06/07/21 oxycodone 5 mg capsule See Rx Instructions .ROUTE 06/07/21 .COMPLEX PRN #42 cap oxycodone 5 mg tablet 5 mg PO Q3-6H PRN #42 tab 06/07/21 tamsulosin 0.4 mg capsule 0.4 mg PO DAILY #5 cap 06/07/21 tamsulosin 0.4 mg capsule (Flomax) 0.4 mg PO DAILY PRN #5 cap 06/07/21 sulfamethoxazole 800 1 tab PO BID #10 tab 11/26/21 mg-trimethoprim 160 mg tablet (Bactrim DS) Allergies Allergy/AdvReac Type Severity Reaction Status Date / Time No Known Drug Allergies Allergy Verified 06/06/21 11:07 Review of Systems Review of Systems Narrative: Remainder of complete review of systems is otherwise unremarkable except for that included in the HPI. Patient History Medical History Arthritis BCC (basal cell carcinoma) Borderline hypertension Enlarged prostate Heart murmur Mitral valve prolapse Rash and nonspecific skin eruption Rosacea SCC (squamous cell carcinoma) Sciatica Thoracic aortic aneurysm Surgical History History of carpal tunnel release Hx of laminectomy (04/2016) Social History household members: spouse Smoking Status: Never smoker alcohol intake: current Smoking Status: Never smoker alcohol intake frequency: holidays/special occasions only Substance Use Type: does not use Exam Initial Vital Signs Initial Vital Signs: Vital Signs Pulse Rate 105 H 11/25/21 20:31 Pulse Oximetry 96 11/25/21 20:31 General: Chronically ill-appearing, in C-collar on backboard per medics. Moving all extremities able to speak in full sentences complaining of head pain and low back pain at the site of his surgical area. Slightly flushed overall and warm to the touch. HEENT: Moist mucous membranes, normal sclera with reactive pupils, minor abrasion with hematoma to the occiput, not complete thickness does not require suturing or linda. Neck: No JVD, tenderness along the occiput and midline cervical spine. Respiratory: Lungs are clear to auscultation, no wheezing no rales no rhonchi. Full and symmetrical air movement Cardiac: Regular rate and rhythm no murmurs no bruits Abdomen: Soft, nontender, good bowel tones, no flank pain Skin: Warm and dry, no rashes Spine: Lumbar spine surgical site has healed nicely he is tender along the entire area. There is no warmth or redness. There is no tenderness to pelvic ring Neurologic: Left lower extremity weakness at baseline, no significant changes. Extremities: No trauma, well perfused, 2+ bilateral lower extremity edema Psych: Cooperative, appropriate insight and affect Course Orders Ordered: ED Orders 11/25/21 21:12 COVID19 -Nasal swab/Pre-Proc Stat 11/25/21 21:15 Blood Culture Stat Complete Blood Count AUTO DIFF Stat Comprehensive Metabolic Panel Stat Lactate (Lactic Acid) Stat Magnesium Stat Procalcitonin Stat 11/25/21 21:27 CT cervical spine wo con Stat CT head/brain wo con Stat XR chest 1V Stat 11/25/21 22:42 Urinalysis and Microscopic Stat Urine Culture Stat Hydromorphone HCl (Hydromorphone 0.5 Mg Inj) 0.5 mg IV Q15MIN PRN PRN Reason: Pain, Hydromorphone HCl (Hydromorphone 1 Mg Inj) 0.5 mg IV NOW PRN PRN Reason: Pain, Mild (1-3) Last Admin: 11/25/21 21:53 Dose: 0.5 mg Documented by: CTRHAYLEE Sodium Chloride (Normal Saline 0.9%) 1,000 mls @ 150 mls/hr IV CONT PROSPER Last Admin: 11/25/21 21:56 Dose: 150 mls/hr Documented by: [email or web address] Vital Signs Vital signs: Vital Signs - 8 hr 11/25/21 20:31 11/25/21 20:32 11/25/21 20:33 Temperature 98.5 F Pulse Rate 105 H 104 H 103 H Respiratory Rate 21 16 Blood Pressure 136/86 136/86 Pulse Oximetry 96 95 95 11/25/21 21:00 11/25/21 21:13 11/25/21 21:30 Temperature 100.4 F H Pulse Rate 100 H 96 H Respiratory Rate 19 17 Blood Pressure Pulse Oximetry 95 95 11/25/21 21:47 11/25/21 22:00 11/25/21 23:52 Temperature 99.2 F Pulse Rate 98 H 99 H Respiratory Rate 20 16 Blood Pressure 141/74 H 122/72 Pulse Oximetry 95 93 MDM - Back Pain/Injury Lab Data Result diagrams: 11/25/21 21:15 11/25/21 21:15 Labs: Lab Results 11/25/21 11/25/21 11/25/21 Range/Units 21:12 21:15 21:15 WBC 10.1 (4.5-11.0) X10^3/uL RBC 3.75 L (4.5-5.9) X10^6/uL Hgb 10.0 L (13.5-17.5) g/dL Hct 30.4 L (41-53) % MCV 80.9 (80-100) fL MCH 26.6 (26-34) PG MCHC 32.8 (30-36) % RDW 16.1 H (11.6-14.8) % Plt Count 323 (150-400) X10^3/uL Neut % (Auto) 84.6 H (50-75) % Lymph % (Auto) 7.7 L (25-40) % [place] % (Auto) 7.1 (3-14) % Eos % (Auto) 0.5 L (2-4) % Baso % (Auto) 0.1 (0-2) % Neut # (Auto) 8600 H (1142-3412) /uL Lymph # (Auto) 800 L (8822-5058) /uL [place] # (Auto) 700 (0-900) /uL Eos # (Auto) 100 (0-450) /uL Baso # (Auto) 0 (0-100) /uL Sodium 138 (137-145) mmol/L Potassium 4.2 (3.4-5.1) mmol/L Chloride 106 (98-107) mmol/L Carbon Dioxide 29 (22-32) mmol/L BUN 25 H (9-20) mg/dL Creatinine 0.60 L (0.66-1.25) mg/dL Estimated GFR > 60.0 (>60) mL/min BUN/Creatinine Ratio 41.7 H (6-22) Glucose 120 H (80-110) mg/dL Lactate (0.7-2.1) mmol/L Calcium 8.9 (8.4-10.2) mg/dL Magnesium 2.0 (1.6-2.3) mg/dL Total Bilirubin 0.8 (0.2-1.3) mg/dL AST 20 (17-59) IU/L ALT 11 (<50) IU/L Alkaline Phosphatase 89 (38-126) U/L Total Protein 6.6 (6.3-8.2) g/dL Albumin 3.2 L (3.5-5.0) g/dL Globulin 3.4 (1.7-4.1) g/dL Albumin/Globulin Ratio 0.9 L (1.0-2.8) Procalcitonin 0.31 (<0.5) ng/mL Urine Color Urine Appearance Urine pH (4.5-8.0) Ur Specific [place] (1.000-1.035) Urine Protein (Negative) Urine Glucose (UA) (Negative) g/dL Urine Ketones (NEGATIVE) Urine Occult Blood (Negative) Urine Nitrate (Negative) Urine Bilirubin (NEGATIVE) Urine Urobilinogen (0.2) E.U./dL Ur Leukocyte Esterase (NEGATIVE) Urine RBC (0-5/HPF) Urine WBC (0-5/HPF) Ur Squamous Epith Cells (0-5/HPF) Urine Bacteria (None) Urine Mucus (Negative) Ur Culture Indicated? SARS-CoV-2 (PCR) Negative (Negative) 11/25/21 11/25/21 Range/Units 21:15 22:42 WBC (4.5-11.0) X10^3/uL RBC (4.5-5.9) X10^6/uL Hgb (13.5-17.5) g/dL Hct (41-53) % MCV (80-100) fL MCH (26-34) PG MCHC (30-36) % RDW (11.6-14.8) % Plt Count (150-400) X10^3/uL Neut % (Auto) (50-75) % Lymph % (Auto) (25-40) % [place] % (Auto) (3-14) % Eos % (Auto) (2-4) % Baso % (Auto) (0-2) % Neut # (Auto) (5725-2385) /uL Lymph # (Auto) (2113-9989) /uL [place] # (Auto) (0-900) /uL Eos # (Auto) (0-450) /uL Baso # (Auto) (0-100) /uL Sodium (137-145) mmol/L Potassium (3.4-5.1) mmol/L Chloride (98-107) mmol/L Carbon Dioxide (22-32) mmol/L BUN (9-20) mg/dL Creatinine (0.66-1.25) mg/dL Estimated GFR (>60) mL/min BUN/Creatinine Ratio (6-22) Glucose (80-110) mg/dL Lactate 0.9 (0.7-2.1) mmol/L Calcium (8.4-10.2) mg/dL Magnesium (1.6-2.3) mg/dL Total Bilirubin (0.2-1.3) mg/dL AST (17-59) IU/L ALT (<50) IU/L Alkaline Phosphatase (38-126) U/L Total Protein (6.3-8.2) g/dL Albumin (3.5-5.0) g/dL Globulin (1.7-4.1) g/dL Albumin/Globulin Ratio (1.0-2.8) Procalcitonin (<0.5) ng/mL Urine Color Yellow Urine Appearance Clear Urine pH 5.0 (4.5-8.0) Ur Specific [place] 1.025 (1.000-1.035) Urine Protein Negative (Negative) Urine Glucose (UA) Negative (Negative) g/dL Urine Ketones Trace H (NEGATIVE) Urine Occult Blood Trace-lysed (Negative) Urine Nitrate Negative (Negative) Urine Bilirubin Negative (NEGATIVE) Urine Urobilinogen 0.2 (0.2) E.U./dL Ur Leukocyte Esterase 1+ H (NEGATIVE) Urine RBC 1-5/hpf (0-5/HPF) Urine WBC 30-100/hpf H (0-5/HPF) Ur Squamous Epith Cells 0-1 /hpf (0-5/HPF) Urine Bacteria Moderate (10-30) H (None) Urine Mucus 1+ H (Negative) Ur Culture Indicated? Specimen cultured SARS-CoV-2 (PCR) (Negative) Imaging Data Chest x-ray: Radiologist's Impression: FINDINGS:? ? Surgical changes and devices:? None.? ? Lungs and pleura:? Bilateral perihilar airspace opacities consistent with pulmonary edema from CHF or a diffuse infectious process.? There is blunting of the left costophrenic angle. ? Mediastinum:? Heart size is enlarged. ? Bones and chest wall:? No suspicious bony lesions.? Overlying soft tissues appear unremarkable.? ? IMPRESSION:? Cardiomegaly and pulmonary edema consistent with mild CHF versus a diffuse infectious process.? ? ? Dictated by: Jan Orr M.D. on 11/25/2021 at 21:40 ? ? CT - cervical spine: Radiologist's Impression: FINDINGS:? Image quality:? Excellent.? ? Bones:? Multilevel degenerative changes with disc disease C3-4, C4-5, C5-6, and C6-7.? Facet arthrosis is seen multiple levels.? There is leftward curvature of cervical spine. ? Soft tissues:? Prevertebral soft tissues are normal in thickness.? No paravertebral hematomas.? No apical pneumothoraces.? ? ? IMPRESSION:? 1. No acute abnormality of the cervical spine. 2. Multilevel degenerative changes and degenerative disc disease. ? Dictated by: Jan Orr M.D. on 11/25/2021 at 21:56 ? ? CT scan - head: Radiologist's Impression: FINDINGS:? Image quality:? Excellent.? ? Bones:? Multilevel degenerative changes with disc disease C3-4, C4-5, C5-6, and C6-7.? Facet arthrosis is seen multiple levels.? There is leftward curvature of cervical spine. ? Soft tissues:? Prevertebral soft tissues are normal in thickness.? No paravertebral hematomas.? No apical pneumothoraces.? ? ? IMPRESSION:? 1. No acute abnormality of the cervical spine. 2. Multilevel degenerative changes and degenerative disc disease. ? Dictated by: Jan Orr M.D. on 11/25/2021 at 21:56 ? ? ECG Data Interpretation: Sinus rhythm at a rate of 103 Left ventricular hypertrophy No acute ischemic changes MDM Narrative Medical decision making narrative: 76-year-old gentleman with spinal surgery in May slow recovery with continued weakness. Apparently has seen his primary care physician and large workup happened within the last few days to make sure that he does have alternate explanations for the significant weakness. No evidence of secondary cancers were found which was part of concern. He has a small contusion to the back of his head does not bleeding and does not need any suturing. CT scan of the head and cervical spine are unremarkable. No other bony injuries at this time. His left lower extremity has limited movement and strength which is his baseline. He is incidentally noted to have a urinary tract infection with bacteria, white cells and leukocyte esterase noted on urine dip. He will be treated with 5 days of Septra. At this time there is no sign of systemic infection or sepsis. We talked about importance of using his walker for stability to do all he can to continue avoid falls. He has were both aware of the risk with falls. He is safe for home discharge at this time Discharge Plan Departure Patient Disposition: Home Clinical Impression: Physical deconditioning, Gait instability Fall Qualifiers: Encounter type: initial encounter Qualified Code(s): W19.XXXA - Unspecified fall, initial encounter Contusion of head Qualifiers: Encounter type: initial encounter Contusion of head detail: scalp Qualified Code(s): S00.03XA - Contusion of scalp, initial encounter Urinary tract infection Qualifiers: Urinary tract infection type: acute cystitis Hematuria presence: without hematuria Qualified Code(s): N30.00 - Acute cystitis without hematuria Instructions: DI for Urinary Tract Infection (UTI), How to Prevent Falls Activity Restrictions/Additional Instructions: Thank you for coming in today I am sorry that you fell this evening. Fortunately you did not break anything. You have no bleeding into your brain. You do have a bump on the back of your head with a minor laceration that does not need any stitches. The CT scan of your cervical spine does not show any acute injuries. It does look like you have a bladder infection. Fortunately, there is no evidence of spreading infection such as a kidney infection or sepsis. It may be that this developing bladder infection contributed to the instability that was already present after your surgery. 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 Eighty find that you have new or worsening symptoms, please return to the emergency department Prescriptions: New sulfamethoxazole-trimethoprim [Bactrim DS] 800-160 mg tablet 1 tab PO BID Qty: 10 0RF No Action tamsulosin 0.4 mg Capsule 0.4 mg PO DAILY 0RF naproxen sodium [Aleve] 220 mg Capsule 220 mg PO DAILY 0RF cholecalciferol (vitamin D3) [Vitamin D3] 10 mcg (400 unit) Capsule 10 mcg PO DAILY 0RF glucosamine sulfate 750 mg Tablet 750 mg PO DAILY 0RF acetaminophen 325 mg Tablet 500 mg PO Q6HR PRN (Reason: for pain, max 6 tabs/day) Qty: 90 0RF oxycodone 5 mg Tablet 5 mg PO Q3-6H PRN (Reason: pain) Qty: 42 0RF docusate sodium [DOK] 100 mg Capsule 100 mg PO BID PRN (Reason: constipation from narcotic pain meds) Qty: 60 0RF tamsulosin [Flomax] 0.4 mg Capsule 0.4 mg PO DAILY PRN (Reason: postop urination) Qty: 5 0RF acetaminophen [Tylenol Extra Strength] 500 mg tablet 500 mg PO Q4-6H MDD 6 tabs/day PRN (Reason: pain) Qty: 90 0RF oxycodone 5 mg capsule See Rx Instructions .ROUTE .COMPLEX PRN (Reason: pain) Qty: 42 0RF Rx Instructions: take 5-10mg by mouth every 3-6hours as needed for moderate-severe postop pain tamsulosin 0.4 mg capsule 0.4 mg PO DAILY Qty: 5 0RF docusate sodium 100 mg tablet 100 mg PO BID PRN (Reason: constipation from narcotic pain meds) Qty: 60 0RF acetaminophen [Tylenol Extra Strength] 500 mg tablet 500 mg PO Q4-6H MDD 6 tabs/day PRN (Reason: pain) Qty: 90 0RF Rx Instructions: ok for OTC Referrals: Aimee Bullock MD [Primary Care Provider] -
[2021-11-25 23:52] LABS: Bilirubin Urine UA NEGATIVE (NEGATIVE); Color Urine UA YELLOW; Glucose Urine UA NEGATIVE (Negative); Ketones Urine UA TRACE (NEGATIVE); Leukocyte Esterase Urine UA 1+ (NEGATIVE); Nitrite Urine UA NEGATIVE (Negative); Occult Blood Urine UA TRACE-LYSED (Negative); Protein Urine UA NEGATIVE (Negative); Specific Gravity Urine UA 1.025 (1.000-1.035); Urobilinogen Urine UA 0.2 E.U./dL (0.2)
[2021-11-25 23:58] LABS: Appearance Urine UA Clear; Bacteria Urine Moderate (10-30); RBC Urine 1-5/HPF (0-5/HPF); Squamous Epithelial Cell Urine 0-1 /HPF (0-5/HPF); WBC Urine 30-100/HPF (0-5/HPF)
[2021-11-26] VITALS: PULSE 96; RESP 18; O2SAT 95
[2021-11-26] LABS: Culture Indicated Urine Specimen Cultured; Mucus Urine 1+ (Negative)
[2021-11-26 00:30] VITALS: PULSE 102; RESP 14; O2SAT 95
[2021-11-26 00:32] VITALS: BP 113/66; PULSE 100; RESP 16; O2SAT 95
[2021-11-26] MEDS: TRIMETH/SULFA 160/800 (DS) TABLET 1 TAB PO (00:42)
[2021-11-26 21:55] LABS: Acinetobacter baumannii Not Detected (Not Detect); Candida albicans Not Detected (Not Detect); Candida glabrata Not Detected (Not Detect); Candida krusei Not Detected (Not Detect); Candida parapsilosis Not Detected (Not Detect); Candida tropicalis Not Detected (Not Detect); E. coli Not Detected (Not Detect); Enterobacter cloacae complex Not Detected (Not Detect); Enterobacteriaceae species Not Detected (Not Detect); Enterococcus species Not Detected (Not Detect); Haemophilus influenzae Not Detected (Not Detect); Listeria monocytogenes Not Detected (Not Detect); Neisseria meningitidis Not Detected (Not Detect); Proteus species Not Detected (Not Detect); Pseudomonas aeruginosa Not Detected (Not Detect); Serratia marcescens Not Detected (Not Detect); Streptococcus agalactiae (Gr B Not Detected (Not Detect); Streptococcus pneumonia Not Detected (Not Detect); Streptococcus pyogenes (Gr A) Not Detected (Not Detect); Streptococcus species Not Detected (Not Detect)
[2021-11-26 21:59] LABS: Methicillin-resistant gene Detected (Not Detect); Staphylococcus species Detected (Not Detect)
== END 2021-11-26 01:05 | disposition home or self-care (01) ==
PROVIDERS: Emergency Provider Emergency Medicine; Family Provider Internal Medicine; PCP Internal Medicine
DX: R53.1 Weakness (principal); R26.89 Other abnormalities of gait and mobility; Z20.822 Contact with and (suspected) exposure to COVID-19
CPT/HCPCS: 36415; 70450; 71045; 72125; 80053; 81001; 83605; 83735; 84145; 85025; 87040; 87077; 87086; 87147; 87150; 87186; 87205; 87635; 93005; 93010; 96361; 96374; 99284; C9803; J1170

== ENCOUNTER 2021-11-29 11:24 | Emergency (ER) | payer MEDICARE, BC, SELFPAY ==
[2021-06-06 20:24] VITALS: BMI 26.6
[2021-11-29 11:25] VITALS: BP 167/62; PULSE 84; RESP 18; TEMP 36.7; O2SAT 99
--- NOTE | 2021-11-29 11:48 | DI.RAD.S_ITS ---
PROCEDURE: XR CHEST 1V INDICATIONS: suspected sepsis TECHNIQUE: One view of the chest was acquired. COMPARISON: [facility], CR, XR CHEST 1V, 11/25/2021, 21:19. FINDINGS: Surgical changes and devices: None. Lungs and pleura: Lungs are clear. No pleural effusions or pneumothorax. Mediastinum: Mediastinal contours appear normal. Heart size is enlarged. Bones and chest wall: No suspicious bony lesions. Overlying soft tissues appear unremarkable. Calcific probable intra-articular loose bodies noted associated with the right glenohumeral joint IMPRESSION: Cardiomegaly without vascular congestion Approved by: Ivan Hamilton M.D. on 11/29/2021 at 11:52
[2021-11-29 12:22] LABS: Add Manual Diff / Slide Review NO; Basophils Absolute Auto 0 /uL (0-100); Basophils Percent Auto 0.6 % (0-2); Eosinophils Absolute Auto 100 /uL (0-450); Eosinophils Percent Auto 0.7 % (2-4); Hematocrit 30.8 % (41-53); Hemoglobin 10.1 g/dL (13.5-17.5); Lymphocytes Absolute Auto 800 /uL (1100-4500); Lymphocytes Percent Auto 10.9 % (25-40); Mean Corpuscular HGB Conc 32.9 % (30-36); Mean Corpuscular Hemoglobin 26.5 PG (26-34); Mean Corpuscular Volume 80.7 fL (80-100); Monocytes Absolute Auto 800 /uL (0-900); Neutrophils Absolute Auto 5800 /uL (1500-7000); Neutrophils Percent Auto 77.8 % (50-75); Platelet Count 339 X10^3/uL (150-400); Red Blood Cell Count 3.82 X10^6/uL (4.5-5.9); Red Cell Distribution Width 16.1 % (11.6-14.8); White Blood Cell Count 7.5 X10^3/uL (4.5-11.0)
[2021-11-29 12:32] LABS: Alanine Aminotransferase 11 IU/L (<50); Albumin 3.6 g/dL (3.5-5.0); Alkaline Phosphatase 88 U/L (38-126); Aspartate Aminotransferase 19 IU/L (17-59); Bilirubin Total 0.6 mg/dL (0.2-1.3); Blood Urea Nitrogen 20 mg/dL (9-20); Calcium 9.4 mg/dL (8.4-10.2); Carbon Dioxide 29 mmol/L (22-32); Chloride 107 mmol/L (98-107); Estimated Glomerular Filt Rate > 60.0 mL/min (>60); Globulin 3.7 g/dL (1.7-4.1); Glucose 107 mg/dL (80-110); HEMOLYSIS < 15 (0-50); Lactate (Lactic Acid) 1.2 mmol/L (0.7-2.1); Lipase 50 U/L (23-300); Potassium 4.4 mmol/L (3.4-5.1); Sodium 138 mmol/L (137-145); Total Protein 7.3 g/dL (6.3-8.2)
[2021-11-29 12:49] LABS: Procalcitonin 0.18 ng/mL (<0.5)
--- NOTE | 2021-11-29 12:59 | ED_ITS ---
HPI - Fever General Chief Complaint: Fever Stated Complaint: SENT BY PCP- BLOOD DISORDER Time Seen by Provider: 11/29/21 12:13 Source: patient and family Mode of arrival: Ambulatory History of Present Illness HPI Narrative: Patient is a 76-year-old male back pain status post L3-4 fusion in May 2021 he has had increasing pain since then. He was seen evaluated on November 25 after he had intense pain after flushing the toilet. He fell backwards landing on his head. During his emergency department stay he developed fever. Cultures returned of both urine and blood of Staph epidermidis resistant and sensitive to the same antibiotics. He was discharged home on Bactrim, which is resistant to, he was called this morning and requested to come back. He has not had any more fevers, he does not have any worsening pain than he normally does he is generally weak but does not seem to be any weaker. He is scheduled to have a full-body MRI in 2 days so that he go to a back specialist in [place] next week. He is currently afebrile pain is controlled. He generally feels the same. Related Data Home Medications Medication Instructions Recorded Confirmed naproxen sodium 220 mg capsule 220 mg PO DAILY 05/29/21 06/06/21 (Aleve) cholecalciferol (vitamin D3) 10 10 mcg PO DAILY 06/06/21 06/06/21 mcg (400 unit) capsule (Vitamin D3) glucosamine sulfate 750 mg tablet 750 mg PO DAILY 06/06/21 06/06/21 Previous Rx's Medication Instructions Recorded acetaminophen 500 mg tablet 500 mg PO Q4-6H PRN #90 tab MDD 6 06/07/21 (Tylenol Extra Strength) tabs/day docusate sodium 100 mg tablet 100 mg PO BID PRN #60 tab 06/07/21 oxycodone 5 mg capsule See Rx Instructions .ROUTE 06/07/21 .COMPLEX PRN #42 cap oxycodone 5 mg tablet 5 mg PO Q3-6H PRN #42 tab 06/07/21 tamsulosin 0.4 mg capsule 0.4 mg PO DAILY #5 cap 06/07/21 sulfamethoxazole 800 1 tab PO BID #10 tab 11/26/21 mg-trimethoprim 160 mg tablet (Bactrim DS) doxycycline hyclate 100 mg capsule 100 mg PO BID #20 cap 11/29/21 Allergies Allergy/AdvReac Type Severity Reaction Status Date / Time No Known Drug Allergies Allergy Verified 11/29/21 11:45 Review of Systems Review of Systems Narrative: GENERAL: Denies chills, fatigue, malaise, fever, sweats, travel HEENT: Denies sinus pain, ear pain, sore throat, difficulty swallowing, neck pain RESPIRATORY: Denies dyspnea, cough, wheezing, hemoptysis, sputum. CARDIOVASCULAR: Denies chest pain, palpitations, orthopnea, edema GASTROINTESTINAL: Denies nausea, vomiting, abdominal pain, diarrhea, constipation, melena. : See HPI MUSCULOSKELETAL: See HPI SKIN: No rash, no erythema, no pruritus NEUROLOGIC: Denies weakness, dizziness, headache, numbness, change in speech, confusion PSYCHIATRIC: No concerning psychosocial issues. 12 point review of systems is negative except for those stated above and HPI Patient History Medical History Arthritis BCC (basal cell carcinoma) Borderline hypertension Enlarged prostate Heart murmur Mitral valve prolapse Rash and nonspecific skin eruption Rosacea SCC (squamous cell carcinoma) Sciatica Thoracic aortic aneurysm Surgical History History of carpal tunnel release Hx of laminectomy (04/2016) Social History household members: spouse Smoking Status: Never smoker alcohol intake: current Smoking Status: Never smoker alcohol intake frequency: holidays/special occasions only Substance Use Type: does not use Exam Initial Vital Signs Initial Vital Signs: Vital Signs Temperature 98.1 F 11/29/21 11:25 Pulse Rate 84 11/29/21 11:25 Respiratory Rate 18 11/29/21 11:25 Blood Pressure 167/62 H 11/29/21 11:25 Pulse Oximetry 99 11/29/21 11:25 GENERAL: Alert generally weak 76-year-old male HEENT: Head atraumatic,EOMI, pupils reactive, face symmetric, moist mucous membranes CARDIOVASCULAR: Regular rate and rhythm without murmurs, rubs or gallops. RESPIRATORY: Breath sounds equal bilaterally, no wheezes rales or rhonchi. ABDOMEN: Soft, nontender. Normoactive bowel sounds all 4 quadrants. No guarding or rebound. BACK: No midline tenderness no sign of trauma EXTREMITIES: Normal range of motion, no clubbing or edema. Neurovascularly intact NEUROLOGICAL: Alert and oriented x4.Normal gait and speech. 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 Course Orders Ordered: ED Orders 11/29/21 11:48 XR chest 1V Stat EKG-12 Lead Stat RT Consult Eval and Treat NOW 11/29/21 12:02 Complete Blood Count AUTO DIFF Stat Comprehensive Metabolic Panel Stat Lactate (Lactic Acid) Stat Lipase Stat Procalcitonin Stat 11/29/21 12:25 Blood Culture Stat Discontinued Medications Doxycycline Hyclate (Doxycycline Hyclate 100 Mg Tablet) 100 mg PO NOW ONE Stop: 11/29/21 14:06 Last Admin: 11/29/21 14:12 Dose: 100 mg Documented by: JORI Vital Signs Vital signs: Vital Signs - 8 hr 11/29/21 11:25 11/29/21 13:03 11/29/21 13:30 Temperature 98.1 F Pulse Rate 84 71 87 Respiratory Rate 18 Blood Pressure 167/62 H Pulse Oximetry 99 98 96 11/29/21 14:00 11/29/21 14:12 Temperature Pulse Rate 71 75 Respiratory Rate Blood Pressure 113/67 Pulse Oximetry 98 97 MDM - Fever Lab Data Result diagrams: 11/29/21 12:02 11/29/21 12:02 Labs: Lab Results 11/29/21 11/29/21 11/29/21 Range/Units 12:02 12:02 12:02 WBC 7.5 (4.5-11.0) X10^3/uL RBC 3.82 L (4.5-5.9) X10^6/uL Hgb 10.1 L (13.5-17.5) g/dL Hct 30.8 L (41-53) % MCV 80.7 (80-100) fL MCH 26.5 (26-34) PG MCHC 32.9 (30-36) % RDW 16.1 H (11.6-14.8) % Plt Count 339 (150-400) X10^3/uL Neut % (Auto) 77.8 H (50-75) % Lymph % (Auto) 10.9 L (25-40) % Harney % (Auto) 10.0 (3-14) % Eos % (Auto) 0.7 L (2-4) % Baso % (Auto) 0.6 (0-2) % Neut # (Auto) 5800 (7792-7934) /uL Lymph # (Auto) 800 L (7679-4324) /uL Harney # (Auto) 800 (0-900) /uL Eos # (Auto) 100 (0-450) /uL Baso # (Auto) 0 (0-100) /uL Sodium 138 (137-145) mmol/L Potassium 4.4 (3.4-5.1) mmol/L Chloride 107 (98-107) mmol/L Carbon Dioxide 29 (22-32) mmol/L BUN 20 (9-20) mg/dL Creatinine 0.77 (0.66-1.25) mg/dL Estimated GFR > 60.0 (>60) mL/min BUN/Creatinine Ratio 26.0 H (6-22) Glucose 107 (80-110) mg/dL Lactate 1.2 (0.7-2.1) mmol/L Calcium 9.4 (8.4-10.2) mg/dL Total Bilirubin 0.6 (0.2-1.3) mg/dL AST 19 (17-59) IU/L ALT 11 (<50) IU/L Alkaline Phosphatase 88 (38-126) U/L Total Protein 7.3 (6.3-8.2) g/dL Albumin 3.6 (3.5-5.0) g/dL Globulin 3.7 (1.7-4.1) g/dL Albumin/Globulin Ratio 1.0 (1.0-2.8) Lipase 50 (23-300) U/L Procalcitonin 0.18 (<0.5) ng/mL Imaging Data Chest x-ray: Radiologist's Impression: PROCEDURE:? XR CHEST 1V ? INDICATIONS:? suspected sepsis ? TECHNIQUE:? One view of the chest was acquired.? ? COMPARISON:? [facility], , XR CHEST 1V, 11/25/2021, 21:19. ? FINDINGS:? ? Surgical changes and devices:? None.? ? Lungs and pleura:? Lungs are clear.? No pleural effusions or pneumothorax.? ? Mediastinum:? Mediastinal contours appear normal.? Heart size is enlarged.? ? Bones and chest wall:? No suspicious bony lesions.? Overlying soft tissues appear unremarkable.? Calcific probable intra-articular loose bodies noted associated with the right glenohumeral joint ? IMPRESSION:? ? Cardiomegaly without vascular congestion ? ? ? Approved by: Ivan Hamilton M.D. on 11/29/2021 at 11:52? ECG Data Interpretation: Normal sinus rhythm rate 71 GA interval 166 QRS 88 QTC 408 T-wave inversion noted in lead [address] changes MDM Narrative Medical decision making narrative: The patient is known to have bacteremia and UTI on an antibiotic it is resistant to. He surprisingly looks okay blood work is overall reassuring. Discussed with him admission to the hospital however at this time he does not want to be admitted to the hospital he feels that he can go home on an appropriate antibiotic. I discussed risks with both he and his including disability and other complication, at this time they would like to go home. I discussed all findings with the patient [and /spouse mother], Education has been performed regarding treatment plan, diagnosis, warning signs and symptoms and all concerns have been addressed. Verbally agree with and understood all of the above. They are aware they may be called back in a few days if blood cultures continue to be positive. For now will change him to doxycycline At this time differential diagnosis includes diskitis osteomyelitis however no significant pain on palpation to back. Patient was offered MRI today day but would rather wait until his outpatient MRI in 2 days., he understands that there may be infection back. Discharge Plan Departure Patient Disposition: Home Clinical Impression: Urinary tract infection Instructions: DI for Urinary Tract Infection (UTI) Activity Restrictions/Additional Instructions: *You have been diagnosed with UTI *What to do: At this time blood cultures are pending we may call you in 2-3 days and heavy return to the emergency department. I hope that you start feelin g better on the correct antibiotic. It was recommended that you stay in the hospital today. *Continue to take medications as directed Doxycycline 1 tab twice a day for 10 days--> SENT TO [facility] *Follow up with your primary care provider in 2-3 days or call [phone] *Return to ER if you should have increasing confusion, fever, weakness or any new, worsening or concerning symptoms Prescriptions: New doxycycline hyclate 100 mg capsule 100 mg PO BID Qty: 20 0RF No Action sulfamethoxazole-trimethoprim [Bactrim DS] 800-160 mg tablet 1 tab PO BID Qty: 10 0RF naproxen sodium [Aleve] 220 mg Capsule 220 mg PO DAILY 0RF cholecalciferol (vitamin D3) [Vitamin D3] 10 mcg (400 unit) Capsule 10 mcg PO DAILY 0RF glucosamine sulfate 750 mg Tablet 750 mg PO DAILY 0RF oxycodone 5 mg Tablet 5 mg PO Q3-6H PRN (Reason: pain) Qty: 42 0RF acetaminophen [Tylenol Extra Strength] 500 mg tablet 500 mg PO Q4-6H MDD 6 tabs/day PRN (Reason: pain) Qty: 90 0RF oxycodone 5 mg capsule See Rx Instructions .ROUTE .COMPLEX PRN (Reason: pain) Qty: 42 0RF Rx Instructions: take 5-10mg by mouth every 3-6hours as needed for moderate-severe postop pain tamsulosin 0.4 mg capsule 0.4 mg PO DAILY Qty: 5 0RF docusate sodium 100 mg tablet 100 mg PO BID PRN (Reason: constipation from narcotic pain meds) Qty: 60 0RF Referrals: Aimee Bullock MD [Primary Care Provider] -
[2021-11-29 13:03] VITALS: PULSE 71; O2SAT 98
[2021-11-29 13:30] VITALS: PULSE 87; O2SAT 96
[2021-11-29 14:00] VITALS: PULSE 71; O2SAT 98
[2021-11-29 14:12] VITALS: BP 113/67; PULSE 75; O2SAT 97
[2021-11-29] MEDS: DOXYCYCLINE HYCLATE 100 MG TABLET PO (14:12)
[2021-11-30 16:41] LABS: Acinetobacter baumannii Not Detected (Not Detect); Candida albicans Not Detected (Not Detect); Candida glabrata Not Detected (Not Detect); Candida krusei Not Detected (Not Detect); Candida parapsilosis Not Detected (Not Detect); Candida tropicalis Not Detected (Not Detect); E. coli Not Detected (Not Detect); Enterobacter cloacae complex Not Detected (Not Detect); Enterobacteriaceae species Not Detected (Not Detect); Enterococcus species Not Detected (Not Detect); Haemophilus influenzae Not Detected (Not Detect); Listeria monocytogenes Not Detected (Not Detect); Methicillin-resistant gene Detected (Not Detect); Neisseria meningitidis Not Detected (Not Detect); Proteus species Not Detected (Not Detect); Pseudomonas aeruginosa Not Detected (Not Detect); Serratia marcescens Not Detected (Not Detect); Streptococcus agalactiae (Gr B Not Detected (Not Detect); Streptococcus pneumonia Not Detected (Not Detect); Streptococcus pyogenes (Gr A) Not Detected (Not Detect); Streptococcus species Not Detected (Not Detect)
[2021-11-30 16:42] LABS: Staphylococcus species Detected (Not Detect)
== END 2021-11-29 14:34 | disposition home or self-care (01) ==
PROVIDERS: Emergency Provider Emergency Medicine; Family Provider Internal Medicine; PCP Internal Medicine
DX: N39.0 Urinary tract infection, site not specified (principal); B96.89 Other specified bacterial agents as the cause of diseases classified elsewhere; Z16.29 Resistance to other single specified antibiotic; R94.31 Abnormal electrocardiogram [ECG] [EKG]
CPT/HCPCS: 36415; 71045; 80053; 83605; 83690; 84145; 85025; 87040; 87077; 87150; 87185; 87186; 87205; 93005; 93010; 99283; 99284

== ENCOUNTER → 2025-02-17 14:16 | Outpatient (CLI) | payer MEDICARE, BC, SELFPAY ==
[2021-06-06 20:24] VITALS: BMI 26.6
--- NOTE | 2025-02-17 14:19 | DI.CT.S_ITS ---
PROCEDURE: CT LUMBAR SPINE WO CON INDICATIONS: Scoliosis TECHNIQUE: Noncontrast 3 mm thick sections acquired from the T12 level to the sacrum. Sagittal and coronal reformats were constructed. For radiation dose reduction, the following was used: automated exposure control. COMPARISON: [facility], CT, CT LUMBAR SPINE WO CON, 07/29/2021, 12:02. FINDINGS: Image quality: Excellent. Bones: Extensive fusion of included lower thoracic spine and lumbar spine is seen extending to L4 level. There is straightening of normal lumbar lordosis. Partial bony union are likely achieved at L1-2 level. Prior kyphoplasty is seen at L1 and L2 vertebral bodies. No acute vertebral body compression fracture. No evidence of gross hardware loosening or failure. No suspicious bony lesions. T12-L1: Surgical hardware are seen with beam hardening artifacts. There is prior posterior decompression. Bilateral facet arthrosis is seen. No significant central canal stenosis. Mild bilateral neural foraminal narrowing is noted. L1-L2: There is prior posterior decompression. Bilateral facet arthrosis is also noted. No significant central canal stenosis. Mild left worse than right bilateral neural foraminal narrowing is seen. L2-L3: Postsurgical changes. Dorsal disc osteophyte complex formation. Bilateral facet arthrosis. No significant central canal stenosis. Mild left-sided neural foraminal narrowing. L3-L4: Postsurgical changes. There is prior left laminectomy. Dorsal disc osteophyte complex formation and bilateral facet arthrosis. No significant central canal stenosis. Moderate left-sided neural foraminal narrowing and [id number] right-sided neural foraminal narrowing is seen. L4-L5: Loss of disc height and degenerative endplate changes are seen. Broad-based disc bulge and bilateral facet arthrosis with moderate central canal stenosis and severe left worse than right bilateral neural foraminal narrowing. L5-S1: Vacuum disc phenomenon is seen. Diffuse disc bulge and bilateral facet arthrosis with mild central canal stenosis and moderate to severe bilateral neural foraminal narrowing slightly worse on the right side. Soft tissues: No retroperitoneal masses or hematomas. Visualized aorta is normal in caliber. IMPRESSION: 1. Extensive postsurgical changes in lower thoracic and lumbar spine as described above. Prior kyphoplasty at L1 and L2 levels. No acute lumbar spine fracture or dislocation. No gross hardware loosening or failure. 2. 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 3. Bilateral facet arthrosis throughout rest of the lumbar spine with mild bilateral neural foraminal narrowing as described above. 4. No gross paraspinous soft tissue abnormalities. Dictated by: Modesto Belcher M.D. on 02/17/2025 at 23:11 Approved by: Modesto Belcher M.D. on 02/17/2025 at 23:16
== END ==
PROVIDERS: Family Provider Internal Medicine; PCP Internal Medicine; Referring Provider Student in an Organized Health Care Education/Training Program; Visit Provider Student in an Organized Health Care Education/Training Program
DX: M86.9 Osteomyelitis, unspecified (principal); M43.25 Fusion of spine, thoracolumbar region; M51.369 Other intervertebral disc degeneration, lumbar region without mention of lumbar back pain or lower extremity pain; M51.379 Other intervertebral disc degeneration, lumbosacral region without mention of lumbar back pain or lower extremity pain; M47.816 Spondylosis without myelopathy or radiculopathy, lumbar region; M47.817 Spondylosis without myelopathy or radiculopathy, lumbosacral region; M48.061 Spinal stenosis, lumbar region without neurogenic claudication; M48.07 Spinal stenosis, lumbosacral region; Z98.1 Arthrodesis status
CPT/HCPCS: 72131